=== PATIENT | male | born 1955 | race Caucasian/White ===

== ENCOUNTER 2019-02-10 13:04 | Outpatient (CLI) | payer OTHER | END 2019-02-10 13:05 | disposition home or self-care (01) | LOC: DTY/OP 13:04 | PROVIDERS: ATTEND Family Medicine | DX: E66.9 Obesity, unspecified (principal) | CPT/HCPCS: 97802 ==

== ENCOUNTER 2020-04-01 10:46 | Inpatient (IN) | payer BC ==
[2020-04-01] MEDS ORDERED: Dexamethasone 10 MG/ML VIAL ONE (11:06)
[2020-04-01] MEDS ORDERED: Azithromycin 500 MG VIAL ONE (11:06)
[2020-04-01] MEDS ORDERED: Magnesium 2 GM/50 ML BAG (IN WATER) ONE (11:06)
[2020-04-01] MEDS ORDERED: cefTRIAXone\\ROCEPHIN 2 GM VIAL ONE (11:06)
--- NOTE | 2020-04-01 11:29 | RAD ---
Exam: XR Knee Lt 4 View STANDARD HISTORY: Trauma to left knee. COMPARISON: None FINDINGS: A left total knee prosthesis is noted in place. No hardware complication is seen. The lateral view is obtained in flexion. No fracture, dislocation, or other osseous abnormality is seen. Vascular calcifications are seen posterior to the left knee. IMPRESSION: Left total knee prosthesis without evidence of an acute osseous abnormality.
[2020-04-01 11:31] LABS: INR-International Normal Ratio 1.5; Prothrombin Time 18.3 sec (12.0-14.7)
[2020-04-01 11:33] LABS: D-Dimer Test 0.67 *mcg/mL (0.27-0.43)
--- NOTE | 2020-04-01 11:33 | RAD ---
XR Chest 1 View Portable History: Chest pain, weakness and shortness of breath Comparison: Radiograph February 23, 2020 Findings: Abnormal peripheral opacities throughout the lungs. Heart size is enlarged. No pneumothorax . Cardiac device appears similar. Impression: Commonly reported imaging findings of the COVID-19 pneumonia.
[2020-04-01 11:37] LABS: #Lymphocytes 0.5 thou/uL (1.20-3.40); #Monocytes 0.2 thou/uL (0.11-0.59); #Neutrophils 4.2 thou/uL (1.40-6.50); %Basophils 0.2 % (0.0-1.0); %Eosinophils 0.2 % (0.0-10.0); %Lymphocytes 10.2 % (21.0-51.0); %Monocytes 4.6 % (0.0-10.0); %Neutrophils 84.8 % (42.0-75.0); Hemoglobin 15.2 g/dL (14.0-18.0); Mean Corpuscular HGB CONC 34.1 g/dL (32.0-36.0); Mean Corpuscular Hemoglobin 34.1 pg (27.0-31.0); Mean Corpuscular Volume 99.9 fL (78.0-98.0); Mean Platelet Volume 8.6 fL (7.4-10.4); Platelet Count 96 thou/uL (130-400); Platelet Morphology Comment Appears Decreased; RBC Distribution Width 12.5 % (11.5-14.5); Red Blood Cell (RBC) Count 4.45 mill/uL (4.70-6.10)
[2020-04-01 11:44] LABS: ALT (SGPT) 33 U/L (8-55); AST (SGOT) 76 U/L (5-34); Alkaline Phosphatase 35 U/L (40-110); Anion Gap 13 mmol/L (10-20); BUN (Urea Nitrogen) 30 mg/dL (8.4-25.7); Bilirubin, Total 0.7 mg/dL (0.2-1.2); CK (CPK) 1676 U/L (30-200); Calc. Creatinine Clearance 0 mL/min (70-130); Calcium 7.9 mg/dL (7.8-10.44); Carbon Dioxide 26 mmol/L (23-31); Chloride 101 mmol/L (98-107); Estimated GFR-MDRD 39; Globulin 2.7 g/dL (2.4-3.5); Glucose 110 mg/dL (80-115); Lipase 90 U/L (8-78); Potassium 4.4 mmol/L (3.5-5.1); Protein, Total 5.7 g/dL (5.8-8.1); Sodium 136 mmol/L (136-145)
[2020-04-01 12:03] LABS: CKMB 1.6 ng/mL (0-6.6)
--- NOTE | 2020-04-01 12:17 | PDOC.HHP ---
Hospitalist HPI - History of Present Illness Dyspnea History of Present Illness: This is a 64-year-old male patient with a history of Coronary artery disease, hypertension, atrial fibrillation on Eliquis, gout, MARIEL and COPD who was brought in by EMS on account of worsening respiratory symptoms, weakness and therefore secondary to Covid pneumonia. He was discharged on 02/25/2020 having been managed for atrial fibrillation. He was tested positive for COVID-19days on 03/21/2020 symptoms are getting worse. He noted worsening dyspnea, chills, fevers and weakness. He became so weak that he fell. He however did not hit his head. He fell on his knees. he monitors his oxygen at home and he notes range between 60s and 80s. He activated EMS who found him with oxygen in the 80s upon release of the supp lemental oxygen. Temperature at home on EMS arrival was 101.7. At presentation BP was 115/69, pulse 64, respiratory rate 20, temperature 99.4, saturation 98 on high flow oxygen. On arrival in the ED was placed on BiPAP with improvement in his oxygenation and dyspnea. His labs showed elevated troponin of 0.05, CK was checked elevated at thousand 676, lipase was mildly of little 90. Creatinine was 1.78 from a baseline of 1.31 on 03/21/2020, AST was slightly increased at 76, and platelet count was 96 from a baseline of 152 on 03/22/2020. D-dimer was elevated at 0.67, imaging showed chest x-ray with abnormal peripheral history of the lung consistent with Covid pneumonia. Chest x-ray was consistent with normal sinus rhythm with left axis deviation and low voltage QRS complexes. He also had x-ray of his knee given his fall which showed left total knee prosthesis without evidence of acute osseous abnormality. CT scan of his head was not done. He was given aspirin 3 to 4 mg, azithromycin 500 mg, magnesium sulfate, Decadron ceftriaxone and 1 L of normal saline. Hospitalist team was called to admit Hospitalist ROS - Review of Systems Constitutional: denies: fever, chills, weakness Respiratory: reports: cough, shortness of breath, hemoptysis, SOB with excertion Cardiovascular: denies: chest pain, palpitations, orthopnea, paroxysmal noc. dyspnea Gastrointestinal: denies: nausea, vomiting, abdominal pain, diarrhea Genitourinary: denies: dysuria, frequency, incontinence, hematuria Hospitalist History - Past Medical History Cardiac: reports: CAD Rheumatologic: reports: Gout Other Medical History: Obstructive sleep apnea, COPD, coronary disease, A. fib, bradycardia status post pacemaker - Past Surgical History Past Surgical History: reports: Total Knee Replacement, Other (stents. Pacer placement. Shoulder repair) Other Surgical History: Pacemaker placement, left knee replacement - Family History Other Family History: Mother has diabetes. - Social History Alcohol: reports: None Drugs: reports: none Living Situation: Alone - Exam General Appearance: awake alert ENT: normocephalic atraumatic, moist mucosa Heart: no murmur, no gallops, no rubs, normal peripheral pulses Respiratory - other findings: Bilateral coarse breath sounds Extremities: no cyanosis, no clubbing, no edema Neurological: cranial nerve grossly intact, no weakness Psychiatric: A&O x 3 Hospitalist Results - Labs Result Diagrams: 04/01/20 11:08 04/01/20 11:08 Lab results: WBC 5.0 thou/uL (4.8-10.8) 04/01/20 11:08 Hgb 15.2 g/dL (14.0-18.0) 04/01/20 11:08 Hct 44.4 % (42.0-52.0) 04/01/20 11:08 MCV 99.9 fL (78.0-98.0) H 04/01/20 11:08 Plt Count 96 thou/uL (130-400) L 04/01/20 11:08 Neutrophils % 84.8 % (42.0-75.0) H 04/01/20 11:08 Sodium 136 mmol/L (136-145) 04/01/20 11:08 Potassium 4.4 mmol/L (3.5-5.1) 04/01/20 11:08 Chloride 101 mmol/L (98-107) 04/01/20 11:08 Carbon Dioxide 26 mmol/L (23-31) 04/01/20 11:08 BUN 30 mg/dL (8.4-25.7) H 04/01/20 11:08 Creatinine 1.78 mg/dL (0.7-1.3) H 04/01/20 11:08 Glucose 110 mg/dL (80-115) 04/01/20 11:08 Calcium 7.9 mg/dL (7.8-10.44) 04/01/20 11:08 Total Bilirubin 0.7 mg/dL (0.2-1.2) 04/01/20 11:08 AST 76 U/L (5-34) H 04/01/20 11:08 ALT 33 U/L (8-55) 04/01/20 11:08 Alkaline Phosphatase 35 U/L (40-110) L 04/01/20 11:08 Creatine Kinase 1676 U/L (30-200) H 04/01/20 11:08 CK-MB (CK-2) 1.6 ng/mL (0-6.6) 04/01/20 11:08 Troponin I 0.050 ng/mL (< 0.028) H 04/01/20 11:08 B-Natriuretic Peptide 36.6 pg/mL (0-100) 04/01/20 11:08 Serum Total Protein 5.7 g/dL (5.8-8.1) L 04/01/20 11:08 Albumin 3.0 g/dL (3.4-4.8) L 04/01/20 11:08 Lipase 90 U/L (8-78) H 04/01/20 11:08 Hospitalist H&P A/P - Plan Plan: 64-year-old male patient history of A. fib, MARIEL, COPD. Admitted on account of acute hypoxic respiratory failure secondary to Covid pneumonia. Acute hypoxic respiratory failure Secondary to Covid pneumonia also underlying COPD and MARIEL Continue on high flow nasal oxygen Breathing treatments adjustment Pulmonology consult if worsens Covid pneumonia Outside remdesivir windowwe will continue monitoring We will continue on Decadron Continue to coagulation for apixaban Consult ID for further input AGA Creatinine 1.31-1.7 today Likely prerenal We will start gentle hydration and monitor Fall Secondary to weakness did not pass out or have any palpitations No head CT on account of not hitting his head He fell on his knees Fall precautions however Telemetry monitoring Close monitoring. Rhabdomyolysis Hydration Monitor CK A. fib Continue apixaban Start amiodarone once those very Telemetry monitoring. Anticoagulant therapy Monitor for bleeding given thrombocytopenia Thrombocytopenia Unclear etiologypossibly Covid/sepsis Keep monitoring Elevated troponin Received troponinwe will monitor Also on anticoagulation. History of gout Start allopurinol until verified Hypertension Hold amlodipine and carvedilolBP soft at the moment. Monitor blood pressure MARIEL CPAP at night [place] prophylaxistherapeutic on apixaban CODE STATUSfull code
[2020-04-01] MEDS ORDERED: Rocuronium Bromide 10 MG/ML (10ML VIAL) ONE (12:21)
[2020-04-01] MEDS ORDERED: Aspirin Chewable 81 MG TAB ONE (12:21)
[2020-04-01] MEDS ORDERED: Succinylcholine Chloride 20 MG/ML 10 ml SYRINGE FS ONE (12:21)
[2020-04-01] MEDS ORDERED: Electrolyte Replacement Protoc 1 EACH EACH FS SCH (13:15)
[2020-04-01] MEDS ORDERED: Electrolyte Replacement Protocol FS PRN (13:15)
[2020-04-01] MEDS ORDERED: PROVENTIL INHALER 6.7 G (200 INHALATIONS) INH PRN (15:15)
--- NOTE | 2020-04-01 15:20 | CT ---
CT HEAD WITHOUT IV CONTRAST COMPARISON: 07/19/2018 HISTORY: Covid positive. Patient fell. Anticoagulated. 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 This results in significant artifact in this region. There is no evidence of an acute infarction, hemorrhage, mass effect, or midline shift. The ventricular system is normal in size, shape, and position. Skull base has a normal CT appearance. Mucosal thickening seen in bilateral ethmoidal air cells and each maxillary antrum. Mastoid air cells are clear. Osseous structures appear intact. No other interval change. IMPRESSION: 1. No acute intracranial abnormality demonstrated. 2. Sinus disease.
[2020-04-01 15:50] LABS: Troponin I 0.061 ng/mL (< 0.028)
[2020-04-01] MEDS: PROVENTIL INHALER 6.7 G (200 INHALATIONS) INH SCH (17:38)
[2020-04-01 18:23] LABS: Troponin I 0.052 ng/mL (< 0.028)
[2020-04-01] MEDS: Apixaban 5 MG TAB PO SCH (19:49)
[2020-04-01] MEDS: Acetaminophen 325 MG TAB PO PRN (19:49)
[2020-04-02] MEDS: PROVENTIL INHALER 6.7 G (200 INHALATIONS) INH SCH ×7 (00:03→22:38)
[2020-04-02 05:28] LABS: #Lymphocytes 0.4 thou/uL (1.20-3.40); #Monocytes 0.3 thou/uL (0.11-0.59); #Neutrophils 5.9 thou/uL (1.40-6.50); %Basophils 0.3 % (0.0-1.0); %Eosinophils 0.2 % (0.0-10.0); %Lymphocytes 6.4 % (21.0-51.0); %Monocytes 4.2 % (0.0-10.0); %Neutrophils 88.9 % (42.0-75.0); Hemoglobin 15.4 g/dL (14.0-18.0); Mean Corpuscular Hemoglobin 33.6 pg (27.0-31.0); Mean Platelet Volume 8.3 fL (7.4-10.4); Platelet Count 110 thou/uL (130-400); RBC Distribution Width 12.5 % (11.5-14.5); Red Blood Cell (RBC) Count 4.59 mill/uL (4.70-6.10); White Blood Cell (WBC) Count 6.7 thou/uL (4.8-10.8)
[2020-04-02 05:45] LABS: Anion Gap 13 mmol/L (10-20); BUN (Urea Nitrogen) 28 mg/dL (8.4-25.7); CK (CPK) 2515 U/L (30-200); Calc. Creatinine Clearance 112 mL/min (70-130); Carbon Dioxide 26 mmol/L (23-31); Chloride 104 mmol/L (98-107); Estimated GFR-MDRD 49; Glucose 136 mg/dL (80-115); Potassium 4.3 mmol/L (3.5-5.1); Sodium 139 mmol/L (136-145)
[2020-04-02] MEDS: Amiodarone 200 MG TAB PO SCH ×2 (08:07→21:05)
[2020-04-02] MEDS: Amlodipine 5 MG TAB PO SCH (08:08)
[2020-04-02] MEDS: Allopurinol 300 MG TAB PO SCH (08:09)
[2020-04-02] MEDS: Carvedilol 6.25 MG TAB PO SCH ×2 (08:09→16:14)
[2020-04-02] MEDS: Apixaban 5 MG TAB PO SCH ×2 (08:09→21:05)
[2020-04-02] MEDS: Acetaminophen 325 MG TAB PO PRN ×3 (08:11→21:05)
[2020-04-02] MEDS ORDERED: Dexamethasone 10 MG/ML VIAL SLOW IVP SCH (09:00)
--- NOTE | 2020-04-02 17:11 | PDOC.HOSPP ---
- Subjective Encounter Date: 04/02/20 Encounter Time: 17:10 Subjective: Mr. Matthews was seen today in follow-up of COVID pneumonia. He notes feeling extremely fatigued. He is also dyspneic, and coughing. - Objective Vital Signs & Weight: Vital Signs (12 hours) Temp Pulse Resp BP BP BP Pulse Ox 04/02/20 16:26 99.6 F 63 20 139/75 93 L 04/02/20 10:47 98.9 F 73 20 131/75 96 04/02/20 08:09 144/73 H 04/02/20 08:08 67 144/73 H 04/02/20 08:01 99.3 F 67 20 144/73 H 99 04/02/20 07:17 99 Weight Weight 338 lb I&O: 04/01/20 04/02/20 04/03/20 06:59 06:59 06:59 Intake Total 990 Output Total 240 Balance 750 Result Diagrams: 04/02/20 05:12 04/02/20 05:12 Hospitalist ROS - Medication Medications: Active Medications Generic Name Dose Route Start Last Admin Trade Name Freq PRN Reason Stop Dose Admin Acetaminophen 650 mg 04/01/20 12:51 04/02/20 16:26 Acetaminophen 325 Mg Tab PO 650 mg Q4H PRN Administration Headache/Fever/Mild Pain (1-3) Albuterol Sulfate 2 puff 04/01/20 18:30 04/02/20 14:30 Proventil Inhaler 6.7 G (200 Inhalations) INH 2 puff [id number] EMANI Administration Allopurinol 300 mg 04/02/20 09:00 04/02/20 08:09 Allopurinol 300 Mg Tab PO 300 mg DAILY EMANI Administration Amiodarone HCl 400 mg 04/02/20 09:00 04/02/20 08:07 Amiodarone 200 Mg Tab PO 400 mg BID EMANI Administration Amlodipine Besylate 2.5 mg 04/02/20 09:00 04/02/20 08:08 Amlodipine 5 Mg Tab PO 2.5 mg DAILY EMANI Administration Apixaban 5 mg 04/01/20 21:00 04/02/20 08:09 Apixaban 5 Mg Tab PO 5 mg BID EMANI Administration Carvedilol 6.25 mg 04/02/20 08:00 04/02/20 16:14 Carvedilol 6.25 Mg Tab PO 6.25 mg BID-WM EMANI Administration Dexamethasone 10 mg 04/02/20 09:00 04/02/20 09:09 Dexamethasone 10 Mg/Ml Vial SLOW IVP 10 mg DAILY EMANI Administration - Exam Eye: PERRL, anicteric sclera Heart: RRR, no murmur, no gallops, no rubs, normal peripheral pulses Respiratory: rales (+ rales at both bases, and decreased breath sounds) Gastrointestinal: soft, non-tender, non-distended, normal bowel sounds, no palpable masses, no hepatomegaly Extremities: no cyanosis (palpable pulses bilaterally), no edema Hosp A/P (1) Acute respiratory failure with hypoxemia Code(s): J96.01 - ACUTE RESPIRATORY FAILURE WITH HYPOXIA Status: Acute (2) Pneumonia due to COVID-19 virus Code(s): U07.1 - COVID-19; J12.89 - OTHER VIRAL PNEUMONIA Status: Acute (3) Atrial fibrillation Code(s): I48.91 - UNSPECIFIED ATRIAL FIBRILLATION Status: Acute Qualifiers: Atrial fibrillation type: paroxysmal Qualified Code(s): I48.0 - Paroxysmal atrial fibrillation (4) CKD (chronic kidney disease) stage 3, GFR 30-59 ml/min Code(s): N18.3 - CHRONIC KIDNEY DISEASE, STAGE 3 (MODERATE) * DO NOT USE * Status: Chronic (5) Coronary artery disease Code(s): I25.10 - ATHSCL HEART DISEASE OF [place] CORONARY ARTERY W/O ANG PCTRS Status: Chronic (6) Hypertension Code(s): I10 - ESSENTIAL (PRIMARY) HYPERTENSION Status: Chronic Qualifiers: Hypertension type: essential hypertension Qualified Code(s): I10 - Essential (primary) hypertension (7) Obesity Code(s): E66.9 - OBESITY, UNSPECIFIED Status: Chronic Qualifiers: Obesity classification: adult class 3 (BMI >= 40) - Plan * Acute respiratory failure with hypoxemia due to COVID pneumonia- continue Dexamethasone IV * Continue Duonebs as needed * Continue high flow oxygen, and will monitor inflammatroy markers * HTN- Blood pressure is stable * AFIB- his heart rate is stable, and continue Eliquis * ID consult- to see if he would benefit from convalescent plasma
[2020-04-02] MEDS ORDERED: Mometasone 100 MCG/PUFF (1 INHALER) INH SCH (18:30)
[2020-04-02] MEDS: Mometasone 100 MCG/PUFF (1 INHALER) INH SCH (21:25)
--- NOTE | 2020-04-03 01:33 | CON ---
DATE OF CONSULTATION: 04/02/2020 REASON: COVID pneumonia. HISTORY OF PRESENT ILLNESS: A 64-year-old who has a history of obesity, gout, coronary artery disease and prior stenting, hypertension, and AFib, who was scheduled for an ablation around March 21, and he had a routine test for COVID, which turned back positive. He did not have symptoms at that time, but actually he did have it, has not realized it yet, but he was feeling some nonspecified malaise that quickly became worse with respiratory symptoms, worsening weakness, and a progressive desaturation, so he called EMS. EMS put him on a BiPAP mask after his O2 saturations were found to be in the 80% range. On arrival, his BP 115/69, pulse 64, respirations 20, temperature 99.4, O2 saturations were 98% on high-flow O2. He was admitted on the , which was the 11th day of illness, today is a 12th day of illness, and he is still about the same. He feels weakness, dyspnea. No headaches. No visual symptoms, sore throat, odynophagia, dysphagia. No chest pain. No abdominal pain. Voiding without difficulty. No diarrhea. MEDICAL HISTORY: Coronary artery disease, atrial fibrillation, hypertension, obesity, CKD stage 3, gout, prior stenting, cardioversion, sleep apnea. SURGICAL HISTORY: Includes also right hip replacement, left shoulder replacement, bilateral knee replacements. SOCIAL HISTORY: Used cocaine in the past, quit many years ago. Former smoker, quit more than 10 years ago. He is retired. FAMILY HISTORY: Renal failure. ALLERGIES: ASPIRIN, LOBSTER SHELLFISH. MEDICATIONS AT HOME: 1. Amiodarone. 2. Coreg. 3. Eliquis. 4. Allopurinol. 5. Inhalers. Currently, he is on: 1. Albuterol. 2. Allopurinol. 3. Amiodarone. 4. Decadron. 5. Mometasone. PHYSICAL EXAMINATION: VITAL SIGNS: T-max 99.3, blood pressure 130/70, heart rate 63, respiratory rate 20, O2 saturation 93% to 96%. He is on 60 L/minute high-flow nasal cannula O2. He is saturating actually now 97%. GENERAL: He is awake, oriented, pleasant. SKIN: There is peripheral IV access. He does not have a Aguero catheter. No lymphadenopathy. HEENT: Ocular movements conjugate. Oral cavity normal. NECK: Supple. LUNGS: Symmetric air entry. A few crackles here and there. No wheezing. HEART: S1, S2. Regular rate. No S3 or S4. ABDOMEN: Protuberant with a large panniculus, but no tenderness. No ascites. No organomegaly or bladder distention. EXTREMITIES: All the artificial joints appear normal. Good range of motion. No inflammatory changes. Pulses are 1+ in dorsalis pedis. No edema. Moves all extremities equally. NEUROLOGIC: Plantar responses are flexor. Cognitive function is perfectly fine. LABORATORY DATA: White cell count 6.7, hemoglobin 15.4, platelets 110 with 88% neutrophils. INR 1.5. D-dimer 0.67. CK is up to 2500. Troponin is at 0.052. IMAGING STUDIES: Basically, we have a chest x-ray which demonstrated bilateral infiltrates, cardiomegaly. ASSESSMENT: Ischemic cardiomyopathy, atrial fibrillation, hypertension, obesity, severe COVID pneumonia, on high-flow O2. He is on the 12th day of illness. He was not eligible for Remdesivir when he came in. We will continue on Decadron and Eliquis and we will monitor his inflammatory markers daily. High risk for poor outcome. Job ID: [id number] [facility]
[2020-04-03] MEDS: PROVENTIL INHALER 6.7 G (200 INHALATIONS) INH SCH ×6 (03:00→23:04)
[2020-04-03] MEDS: Apixaban 5 MG TAB PO SCH ×2 (09:04→21:20)
[2020-04-03] MEDS: Dexamethasone 4 mg/ml Vial SLOW IVP SCH (09:04)
[2020-04-03] MEDS: Allopurinol 300 MG TAB PO SCH (09:05)
[2020-04-03] MEDS: Amiodarone 200 MG TAB PO SCH ×2 (09:05→21:20)
[2020-04-03] MEDS: Amlodipine 5 MG TAB PO SCH (09:05)
[2020-04-03] MEDS: Carvedilol 6.25 MG TAB PO SCH ×2 (09:06→16:30)
[2020-04-03] MEDS: Mometasone 100 MCG/PUFF (1 INHALER) INH SCH ×2 (09:07→21:21)
--- NOTE | 2020-04-03 15:12 | PDOC.HOSPP ---
- Subjective Encounter Date: 04/03/20 Encounter Time: 15:10 Subjective: Mr. Matthews was seen today in follow-up of respiratory failure. He says he is feeling a little better today. No new complaints. - Objective Vital Signs & Weight: Vital Signs (12 hours) Temp Pulse Resp BP BP Pulse Ox 04/03/20 09:06 144/73 H 04/03/20 09:00 90 L 04/03/20 04:30 99.6 F 68 20 137/79 91 L Weight Weight 338 lb I&O: 04/02/20 04/03/20 04/04/20 06:59 06:59 06:59 Intake Total 990 800 900 Output Total 240 680 580 Balance 750 120 320 Result Diagrams: 04/02/20 05:12 04/02/20 05:12 Hospitalist ROS - Medication Medications: Active Medications Generic Name Dose Route Start Last Admin Trade Name Freq PRN Reason Stop Dose Admin Acetaminophen 650 mg 04/01/20 12:51 04/02/20 21:05 Acetaminophen 325 Mg Tab PO 650 mg Q4H PRN Administration Headache/Fever/Mild Pain (1-3) Albuterol Sulfate 2 puff 04/01/20 18:30 04/03/20 09:06 Proventil Inhaler 6.7 G (200 Inhalations) INH 2 puff [id number] EMANI Administration Allopurinol 300 mg 04/02/20 09:00 04/03/20 09:05 Allopurinol 300 Mg Tab PO 300 mg DAILY EMANI Administration Amiodarone HCl 400 mg 04/02/20 09:00 04/03/20 09:05 Amiodarone 200 Mg Tab PO 400 mg BID EMANI Administration Amlodipine Besylate 2.5 mg 04/02/20 09:00 04/03/20 09:05 Amlodipine 5 Mg Tab PO 2.5 mg DAILY EMANI Administration Apixaban 5 mg 04/01/20 21:00 04/03/20 09:04 Apixaban 5 Mg Tab PO 5 mg BID EMANI Administration Carvedilol 6.25 mg 04/02/20 08:00 04/03/20 09:06 Carvedilol 6.25 Mg Tab PO 6.25 mg BID-WM EMANI Administration Dexamethasone 6 mg 04/03/20 09:00 04/03/20 09:04 Dexamethasone 4 Mg/Ml Vial SLOW IVP 6 mg DAILY EMANI Administration Mometasone Furoate 100 mcg 04/02/20 21:00 04/03/20 09:07 Mometasone 100 Mcg/Puff (1 Inhaler) INH 100 mcg BID EMANI Administration - Exam Eye: PERRL, anicteric sclera Heart: RRR, no murmur, no gallops, no rubs, normal peripheral pulses Respiratory: no wheezes, no ronchi, rales (+ rales at both bases) Gastrointestinal: soft, non-tender, non-distended, normal bowel sounds, no palpable masses, no hepatomegaly, no splenomegaly Extremities: no cyanosis, no edema Skin: normal turgor, no rashes Hosp A/P (1) Acute respiratory failure with hypoxemia Code(s): J96.01 - ACUTE RESPIRATORY FAILURE WITH HYPOXIA Status: Acute (2) Pneumonia due to COVID-19 virus Code(s): U07.1 - COVID-19; J12.89 - OTHER VIRAL PNEUMONIA Status: Acute (3) Atrial fibrillation Code(s): I48.91 - UNSPECIFIED ATRIAL FIBRILLATION Status: Acute Qualifiers: Atrial fibrillation type: paroxysmal Qualified Code(s): I48.0 - Paroxysmal atrial fibrillation (4) CKD (chronic kidney disease) stage 3, GFR 30-59 ml/min Code(s): N18.3 - CHRONIC KIDNEY DISEASE, STAGE 3 (MODERATE) * DO NOT USE * Status: Chronic (5) Coronary artery disease Code(s): I25.10 - ATHSCL HEART DISEASE OF [place] CORONARY ARTERY W/O ANG PCTRS Status: Chronic (6) Hypertension Code(s): I10 - ESSENTIAL (PRIMARY) HYPERTENSION Status: Chronic Qualifiers: Hypertension type: essential hypertension Qualified Code(s): I10 - Essential (primary) hypertension (7) Obesity Code(s): E66.9 - OBESITY, UNSPECIFIED Status: Chronic Qualifiers: Obesity classification: adult class 3 (BMI >= 40) - Plan * Acute respiratory failure with hypoxemia due to COVID pneumonia- continue Dexamethasone IV * Continue Duonebs as needed * Continue high flow oxygen, and will monitor inflammatroy markers * Will optimize his nutritional status, and add Vitamin C and Zinc * Add Incentive Spirometry * AFIB- his heart rate is stable, and continue Eliquis * HTN- blood pressure is stable
[2020-04-03] MEDS ORDERED: Zinc Sulfate 220 MG CAP PO SCH (15:30)
[2020-04-03] MEDS ORDERED: Ascorbic Acid 500 mg Chewable Tablet PO SCH (15:30)
[2020-04-03] MEDS: Acetaminophen 325 MG TAB PO PRN (21:20)
[2020-04-04] MEDS: PROVENTIL INHALER 6.7 G (200 INHALATIONS) INH SCH ×6 (02:30→23:21)
[2020-04-04] MEDS: Dexamethasone 4 mg/ml Vial SLOW IVP SCH (08:30)
[2020-04-04] MEDS: Zinc Sulfate 220 MG CAP PO SCH (08:30)
[2020-04-04] MEDS: Amiodarone 200 MG TAB PO SCH ×2 (08:31→20:42)
[2020-04-04] MEDS: Ascorbic Acid 500 mg Chewable Tablet PO SCH (08:31)
[2020-04-04] MEDS: Amlodipine 5 MG TAB PO SCH (08:31)
[2020-04-04] MEDS: Allopurinol 300 MG TAB PO SCH (08:31)
[2020-04-04] MEDS: Apixaban 5 MG TAB PO SCH ×2 (08:32→20:42)
[2020-04-04] MEDS: Carvedilol 6.25 MG TAB PO SCH ×2 (08:33→17:51)
[2020-04-04] MEDS: Mometasone 100 MCG/PUFF (1 INHALER) INH SCH ×2 (08:33→20:42)
--- NOTE | 2020-04-04 12:34 | PQF ---
CLINICAL DOCUMENTATION CLARIFICATION FORM: Dear Dr. Jenkins Date: 04/04/20 1220 Please exercise your independent, professional judgment in responding to the clarification form. Clinical indicators are provided on the bottom of this form for your review. Please check appropriate box(es): AMI TYPE: [ ] Type 1 ME (NSTEMI) [ X ] Type 2 ME (T2MI) secondary to: [ ] hypertension [ ] arrhythmia [ ] Infection [ ] ischemic stroke [ ] renal failure [ X] other COVID peumonia with hypoxemia [ ] Other: [ ] Takotsubo syndrome [ ] Other diagnosis [ ] Unable to determine In addition, please specify: Present on Admission (POA): [ X] Yes [ ] No [ ] Unable to determine For continuity of documentation, please document condition throughout progress notes and discharge summary. Thank You. To be completed by CDI/Coding staff for physician review: CLINICAL INDICATORS - SIGNS / SYMPTOMS / LABS / RESULTS AND LOCATION IN EMR Troponin I 0.050, 0.061, 0.052 ( 04/01) ED report: final Dx Covid Pneumonia w hypoxia, Elevated CPK, Indeterminate Troponin RISKS / RESULTS AND LOCATION IN EMR Hypertension, CAD, S/P pacemaker placement, A-fib ( H&P/Affram)04/01 TREATMENTS / RESULTS AND LOCATION IN EMR Supplemental oxygen ( 04/01- present) Serial troponin (04/01) Thank you! CDS Signature: Edith Joseph RN Phone #: [phone] Date: 04/04/2020 This is a permanent part of the Medical Record [facility]
[2020-04-05] MEDS: PROVENTIL INHALER 6.7 G (200 INHALATIONS) INH SCH ×6 (02:35→22:45)
[2020-04-05] MEDS: Zinc Sulfate 220 MG CAP PO SCH (08:26)
[2020-04-05] MEDS: Amiodarone 200 MG TAB PO SCH ×2 (08:26→20:25)
[2020-04-05] MEDS: Apixaban 5 MG TAB PO SCH ×2 (08:28→20:25)
[2020-04-05] MEDS: Amlodipine 5 MG TAB PO SCH (08:28)
[2020-04-05] MEDS: Ascorbic Acid 500 mg Chewable Tablet PO SCH (08:28)
[2020-04-05] MEDS: Allopurinol 300 MG TAB PO SCH (08:28)
[2020-04-05] MEDS: Dexamethasone 4 mg/ml Vial SLOW IVP SCH (08:29)
[2020-04-05] MEDS: Carvedilol 6.25 MG TAB PO SCH ×2 (08:29→17:15)
[2020-04-05] MEDS: Mometasone 100 MCG/PUFF (1 INHALER) INH SCH ×2 (08:30→20:26)
[2020-04-05 08:53] LABS: Band 1 % (5-11); Hemoglobin 15.9 g/dL (14.0-18.0); Lymphocytes 9 % (21-51); MDiff Complete? YES; Mean Corpuscular HGB CONC 33.4 g/dL (32.0-36.0); Mean Corpuscular Hemoglobin 33.7 pg (27.0-31.0); Mean Platelet Volume 8.5 fL (7.4-10.4); Monocytes 4 % (0-10); Neutrophil 85 % (42-75); Platelet Count 165 thou/uL (130-400); Platelet Morphology Comment Appears Adequate; RBC Distribution Width 12.5 % (11.5-14.5); RBC Morphology Normal; Reactive Lymphocytes 1 % (0-10); Red Blood Cell (RBC) Count 4.72 mill/uL (4.70-6.10); White Blood Cell (WBC) Count 6.7 thou/uL (4.8-10.8)
[2020-04-05 10:33] LABS: Anion Gap 17 mmol/L (10-20); BUN (Urea Nitrogen) 27 mg/dL (8.4-25.7); Calc. Creatinine Clearance 162 mL/min (70-130); Calcium 8.2 mg/dL (7.8-10.44); Carbon Dioxide 22 mmol/L (23-31); Chloride 107 mmol/L (98-107); Estimated GFR-MDRD 75; Glucose 109 mg/dL (80-115); Potassium 4.4 mmol/L (3.5-5.1); Sodium 142 mmol/L (136-145)
--- NOTE | 2020-04-05 17:01 | PRG ---
DATE OF SERVICE: 04/05/2020 SUBJECTIVE: He feels like he is getting slowly better. He is having some diarrhea, but no respiratory symptoms other than [id number] dyspnea. Not much cough. No chest pain. No abdominal pain. Voiding without difficulty. OBJECTIVE: VITAL SIGNS: Blood pressure 140/70, heart rate 65, saturating at 93 high-flow nasal cannula O2 at 60. He has been at 60 since admission. His O2 saturations are a bit lower than what he had been on admission. LUNGS: Symmetric. Clear breath sounds. HEART: S1, S2. Regular rate. ABDOMEN: Soft, not distended or tender. EXTREMITIES: Moves extremities equally. LABORATORY DATA: Sodium 142, creatinine 1.01. Ferritin is down to 1900 from 2500 and CRP is down to 2.57, which are both significant improvement. ASSESSMENT AND DISCUSSION: Ischemic cardiomyopathy, atrial fibrillation, hypertension, obesity, severe COVID pneumonia, on high-flow O2. This is the 15th day of illness. Continues on Decadron, Eliquis. Inflammatory markers are getting better. Job ID: [id number]
--- NOTE | 2020-04-05 17:42 | PDOC.HOSPP ---
- Subjective Encounter Date: 04/05/20 Encounter Time: 17:40 Subjective: Mr. Matthews was seen today in follow-up of COVID pneumonia and respiratory failure. He says he feels a little better today than yesterday, and his oxygen saturation have improved some. - Objective Vital Signs & Weight: Vital Signs (12 hours) Pulse BP Pulse Ox 04/05/20 17:15 144/73 H 04/05/20 08:29 144/73 H 04/05/20 08:28 65 04/05/20 08:00 94 L Weight Weight 338 lb I&O: 04/04/20 04/05/20 04/06/20 06:59 06:59 06:59 Intake Total 1400 2000 Output Total 1230 1050 Balance 170 950 Result Diagrams: 04/05/20 08:14 04/05/20 08:14 Hospitalist ROS - Medication Medications: Active Medications Generic Name Dose Route Start Last Admin Trade Name Freq PRN Reason Stop Dose Admin Acetaminophen 650 mg 04/01/20 12:51 04/03/20 21:20 Acetaminophen 325 Mg Tab PO 650 mg Q4H PRN Administration Headache/Fever/Mild Pain (1-3) Albuterol Sulfate 2 puff 04/01/20 18:30 04/05/20 15:28 Proventil Inhaler 6.7 G (200 Inhalations) INH 2 puff [id number] EMANI Administration Allopurinol 300 mg 04/02/20 09:00 04/05/20 08:28 Allopurinol 300 Mg Tab PO 300 mg DAILY EMANI Administration Amiodarone HCl 400 mg 04/02/20 09:00 04/05/20 08:26 Amiodarone 200 Mg Tab PO 400 mg BID EMANI Administration Amlodipine Besylate 2.5 mg 04/02/20 09:00 04/05/20 08:28 Amlodipine 5 Mg Tab PO 2.5 mg DAILY EMANI Administration Apixaban 5 mg 04/01/20 21:00 04/05/20 08:28 Apixaban 5 Mg Tab PO 5 mg BID EMANI Administration Ascorbic Acid 1,000 mg 04/04/20 09:00 04/05/20 08:28 Ascorbic Acid 500 Mg Chewable Tablet PO 1,000 mg DAILY EMANI Administration Carvedilol 6.25 mg 04/02/20 08:00 04/05/20 17:15 Carvedilol 6.25 Mg Tab PO 6.25 mg BID-WM EMANI Administration Dexamethasone 6 mg 04/03/20 09:00 04/05/20 08:29 Dexamethasone 4 Mg/Ml Vial SLOW IVP 6 mg DAILY EMANI Administration Mometasone Furoate 100 mcg 04/02/20 21:00 04/05/20 08:30 Mometasone 100 Mcg/Puff (1 Inhaler) INH 100 mcg BID EMANI Administration Zinc Sulfate 220 mg 04/04/20 09:00 04/05/20 08:26 Zinc Sulfate 220 Mg Cap PO 220 mg DAILY EMANI Administration - Exam Eye: PERRL, anicteric sclera Heart: RRR, no murmur, no gallops, no rubs, normal peripheral pulses Respiratory: no ronchi, rales Gastrointestinal: soft, non-tender, non-distended, normal bowel sounds, no palpable masses, no hepatomegaly Extremities: no cyanosis, 1+ LE edema Hosp A/P (1) Acute respiratory failure with hypoxemia Code(s): J96.01 - ACUTE RESPIRATORY FAILURE WITH HYPOXIA Status: Acute (2) Pneumonia due to COVID-19 virus Code(s): U07.1 - COVID-19; J12.89 - OTHER VIRAL PNEUMONIA Status: Acute (3) Atrial fibrillation Code(s): I48.91 - UNSPECIFIED ATRIAL FIBRILLATION Status: Acute Qualifiers: Atrial fibrillation type: paroxysmal Qualified Code(s): I48.0 - Paroxysmal atrial fibrillation (4) CKD (chronic kidney disease) stage 3, GFR 30-59 ml/min Code(s): N18.3 - CHRONIC KIDNEY DISEASE, STAGE 3 (MODERATE) * DO NOT USE * Status: Chronic (5) Coronary artery disease Code(s): I25.10 - ATHSCL HEART DISEASE OF [place] CORONARY ARTERY W/O ANG PCTRS Status: Chronic (6) Hypertension Code(s): I10 - ESSENTIAL (PRIMARY) HYPERTENSION Status: Chronic Qualifiers: Hypertension type: essential hypertension Qualified Code(s): I10 - Essential (primary) hypertension (7) Obesity Code(s): E66.9 - OBESITY, UNSPECIFIED Status: Chronic Qualifiers: Obesity classification: adult class 3 (BMI >= 40) - Plan * Acute respiratory failure with hypoxemia due to COVID pneumonia- * He is slightly improved, but condition is still guarded * Continue Dexamethasone IV * Continue Duonebs as needed * Continue high flow oxygen, and will monitor inflammatroy markers * Continue Incentive Spirometry * AFIB- his heart rate is stable, and continue Eliquis * HTN- blood pressure is stable
[2020-04-06] MEDS: PROVENTIL INHALER 6.7 G (200 INHALATIONS) INH SCH ×6 (02:34→22:40)
[2020-04-06] MEDS: Amiodarone 200 MG TAB PO SCH ×2 (08:11→19:53)
[2020-04-06] MEDS: Ascorbic Acid 500 mg Chewable Tablet PO SCH (08:11)
[2020-04-06] MEDS: Apixaban 5 MG TAB PO SCH ×2 (08:11→19:53)
[2020-04-06] MEDS: Dexamethasone 4 mg/ml Vial SLOW IVP SCH (08:12)
[2020-04-06] MEDS: Allopurinol 300 MG TAB PO SCH (08:12)
[2020-04-06] MEDS: Zinc Sulfate 220 MG CAP PO SCH (08:12)
[2020-04-06] MEDS: Carvedilol 6.25 MG TAB PO SCH ×2 (08:12→16:04)
[2020-04-06] MEDS: Amlodipine 5 MG TAB PO SCH (08:12)
[2020-04-06] MEDS: Mometasone 100 MCG/PUFF (1 INHALER) INH SCH ×2 (08:13→19:53)
--- NOTE | 2020-04-06 14:51 | PDOC.HOSPP ---
- Subjective Encounter Date: 04/06/20 Encounter Time: 14:50 Subjective: Mr. Matthews was seen today in follow-up of COVID pneumonia. He says he is feeling a little better today. He walked a few steps in his room,on high flow, and his oxygen saturations did not drop. He denies chest pain or difficulty breathing. - Objective Vital Signs & Weight: Vital Signs (12 hours) Temp Pulse Resp BP BP Pulse Ox 04/06/20 11:37 156/87 H 04/06/20 08:12 61 144/73 H 04/06/20 08:05 98.2 F 61 20 175/79 H 92 L 04/06/20 08:00 92 L Weight Weight 338 lb I&O: 04/05/20 04/06/20 04/07/20 06:59 06:59 06:59 Intake Total 2000 900 Output Total 1050 750 Balance 950 150 Result Diagrams: 04/05/20 08:14 04/05/20 08:14 Hospitalist ROS - Medication Medications: Active Medications Generic Name Dose Route Start Last Admin Trade Name Freq PRN Reason Stop Dose Admin Acetaminophen 650 mg 04/01/20 12:51 04/03/20 21:20 Acetaminophen 325 Mg Tab PO 650 mg Q4H PRN Administration Headache/Fever/Mild Pain (1-3) Albuterol Sulfate 2 puff 04/01/20 18:30 04/06/20 05:46 Proventil Inhaler 6.7 G (200 Inhalations) INH 2 puff [id number] EMANI Administration Allopurinol 300 mg 04/02/20 09:00 04/06/20 08:12 Allopurinol 300 Mg Tab PO 300 mg DAILY EMANI Administration Amiodarone HCl 400 mg 04/02/20 09:00 04/06/20 08:11 Amiodarone 200 Mg Tab PO 400 mg BID EMANI Administration Amlodipine Besylate 2.5 mg 04/02/20 09:00 04/06/20 08:12 Amlodipine 5 Mg Tab PO 2.5 mg DAILY EMANI Administration Apixaban 5 mg 04/01/20 21:00 04/06/20 08:11 Apixaban 5 Mg Tab PO 5 mg BID EMANI Administration Ascorbic Acid 1,000 mg 04/04/20 09:00 04/06/20 08:11 Ascorbic Acid 500 Mg Chewable Tablet PO 1,000 mg DAILY EMANI Administration Carvedilol 6.25 mg 04/02/20 08:00 04/06/20 08:12 Carvedilol 6.25 Mg Tab PO 6.25 mg BID-WM EMNAI Administration Dexamethasone 6 mg 04/03/20 09:00 04/06/20 08:12 Dexamethasone 4 Mg/Ml Vial SLOW IVP 6 mg DAILY EMANI Administration Mometasone Furoate 100 mcg 04/02/20 21:00 04/06/20 08:13 Mometasone 100 Mcg/Puff (1 Inhaler) INH 100 mcg BID EMANI Administration Zinc Sulfate 220 mg 04/04/20 09:00 04/06/20 08:12 Zinc Sulfate 220 Mg Cap PO 220 mg DAILY EMANI Administration - Exam Eye: PERRL, anicteric sclera Heart: RRR, no murmur, no gallops, no rubs, normal peripheral pulses Respiratory: no ronchi, rales (+ rales at both bases) Gastrointestinal: soft, non-tender, non-distended, normal bowel sounds, no palpable masses, no hepatomegaly Extremities: no cyanosis, no edema Skin: normal turgor, no lesions, no rashes Hosp A/P (1) Acute respiratory failure with hypoxemia Code(s): J96.01 - ACUTE RESPIRATORY FAILURE WITH HYPOXIA Status: Acute (2) Pneumonia due to COVID-19 virus Code(s): U07.1 - COVID-19; J12.89 - OTHER VIRAL PNEUMONIA Status: Acute (3) Atrial fibrillation Code(s): I48.91 - UNSPECIFIED ATRIAL FIBRILLATION Status: Acute Qualifiers: Atrial fibrillation type: paroxysmal Qualified Code(s): I48.0 - Paroxysmal atrial fibrillation (4) CKD (chronic kidney disease) stage 3, GFR 30-59 ml/min Code(s): N18.3 - CHRONIC KIDNEY DISEASE, STAGE 3 (MODERATE) * DO NOT USE * Status: Chronic (5) Coronary artery disease Code(s): I25.10 - ATHSCL HEART DISEASE OF [place] CORONARY ARTERY W/O ANG PCTRS Status: Chronic (6) Hypertension Code(s): I10 - ESSENTIAL (PRIMARY) HYPERTENSION Status: Chronic Qualifiers: Hypertension type: essential hypertension Qualified Code(s): I10 - Essential (primary) hypertension (7) Obesity Code(s): E66.9 - OBESITY, UNSPECIFIED Status: Chronic Qualifiers: Obesity classification: adult class 3 (BMI >= 40) - Plan * Acute respiratory failure with hypoxemia due to COVID pneumonia- * He is slightly improved, * Continue Dexamethasone IV * Continue Duonebs as needed * His Inflammatory markers have declined some * Continue Incentive Spirometry * AFIB- his heart rate is stable, and continue Eliquis * HTN- blood pressure is a bit elevated- will increase the dose of Amlodipine
[2020-04-06] MEDS ORDERED: Amlodipine 5 MG TAB PO SCH (15:00)
[2020-04-07] MEDS: PROVENTIL INHALER 6.7 G (200 INHALATIONS) INH SCH ×6 (02:35→22:50)
[2020-04-07] MEDS: Carvedilol 6.25 MG TAB PO SCH ×2 (08:50→16:50)
[2020-04-07] MEDS: Amiodarone 200 MG TAB PO SCH ×2 (08:50→19:54)
[2020-04-07] MEDS: Allopurinol 300 MG TAB PO SCH (08:50)
[2020-04-07] MEDS: Amlodipine 5 MG TAB PO SCH (08:51)
[2020-04-07] MEDS: Dexamethasone 4 mg/ml Vial SLOW IVP SCH (08:51)
[2020-04-07] MEDS: Mometasone 100 MCG/PUFF (1 INHALER) INH SCH ×2 (08:51→19:55)
[2020-04-07] MEDS: Zinc Sulfate 220 MG CAP PO SCH (08:51)
[2020-04-07] MEDS: Apixaban 5 MG TAB PO SCH ×2 (08:51→19:54)
[2020-04-07] MEDS: Ascorbic Acid 500 mg Chewable Tablet PO SCH (08:51)
--- NOTE | 2020-04-07 15:10 | PDOC.HOSPP ---
- Subjective Encounter Date: 04/07/20 Encounter Time: 09:45 Subjective: feels better is trying to ambulate around his bed with high flow O2 is using spirometer as well no new complaints he cant lay prone but can sleep to lat sides - Objective Vital Signs & Weight: Vital Signs (12 hours) Temp Pulse Resp BP BP Pulse Ox 04/07/20 11:48 98.3 F 61 18 177/95 H 96 04/07/20 08:55 95 04/07/20 08:51 63 04/07/20 08:50 144/73 H Weight Weight 338 lb I&O: 04/06/20 04/07/20 04/08/20 06:59 06:59 05:59 Intake Total 900 1450 240 Output Total 750 1250 Balance 150 200 240 Result Diagrams: 04/05/20 08:14 04/05/20 08:14 Hospitalist ROS - Medication Medications: Active Medications Generic Name Dose Route Start Last Admin Trade Name Freq PRN Reason Stop Dose Admin Acetaminophen 650 mg 04/01/20 12:51 04/03/20 21:20 Acetaminophen 325 Mg Tab PO 650 mg Q4H PRN Administration Headache/Fever/Mild Pain (1-3) Albuterol Sulfate 2 puff 04/01/20 18:30 04/07/20 10:35 Proventil Inhaler 6.7 G (200 Inhalations) INH 2 puff [id number] EMANI Administration Allopurinol 300 mg 04/02/20 09:00 04/07/20 08:50 Allopurinol 300 Mg Tab PO 300 mg DAILY EMANI Administration Amiodarone HCl 400 mg 04/02/20 09:00 04/07/20 08:50 Amiodarone 200 Mg Tab PO 400 mg BID EMANI Administration Amlodipine Besylate 5 mg 04/07/20 09:00 04/07/20 08:51 Amlodipine 5 Mg Tab PO 5 mg DAILY EMANI Administration Apixaban 5 mg 04/01/20 21:00 04/07/20 08:51 Apixaban 5 Mg Tab PO 5 mg BID EMANI Administration Ascorbic Acid 1,000 mg 04/04/20 09:00 04/07/20 08:51 Ascorbic Acid 500 Mg Chewable Tablet PO 1,000 mg DAILY EMANI Administration Carvedilol 6.25 mg 04/02/20 08:00 04/07/20 08:50 Carvedilol 6.25 Mg Tab PO 6.25 mg BID-WM EMANI Administration Dexamethasone 6 mg 04/03/20 09:00 04/07/20 08:51 Dexamethasone 4 Mg/Ml Vial SLOW IVP 6 mg DAILY EMANI Administration Mometasone Furoate 100 mcg 04/02/20 21:00 04/07/20 08:51 Mometasone 100 Mcg/Puff (1 Inhaler) INH 100 mcg BID EMANI Administration Zinc Sulfate 220 mg 04/04/20 09:00 04/07/20 08:51 Zinc Sulfate 220 Mg Cap PO 220 mg DAILY EMANI Administration - Exam General Appearance: awake alert, ill appearing Eye: PERRL, anicteric sclera ENT: no oropharyngeal lesions, moist mucosa Neck: symmetric, no JVD Heart: RRR, no murmur Respiratory: no wheezes, rales, rhonchi Gastrointestinal: soft, non-tender, non-distended, normal bowel sounds Extremities: no cyanosis, no edema Neurological: cranial nerve grossly intact, no focal deficits Psychiatric: normal affect, A&O x 3 Hosp A/P (1) Acute respiratory failure with hypoxemia Code(s): J96.01 - ACUTE RESPIRATORY FAILURE WITH HYPOXIA Status: Acute (2) Pneumonia due to COVID-19 virus Code(s): U07.1 - COVID-19; J12.89 - OTHER VIRAL PNEUMONIA Status: Acute (3) Atrial fibrillation Code(s): I48.91 - UNSPECIFIED ATRIAL FIBRILLATION Status: Chronic Qualifiers: Atrial fibrillation type: paroxysmal Qualified Code(s): I48.0 - Paroxysmal atrial fibrillation (4) CKD (chronic kidney disease) stage 3, GFR 30-59 ml/min Code(s): N18.3 - CHRONIC KIDNEY DISEASE, STAGE 3 (MODERATE) * DO NOT USE * Status: Chronic (5) Coronary artery disease Code(s): I25.10 - ATHSCL HEART DISEASE OF [place] CORONARY ARTERY W/O ANG PCTRS Status: Chronic Qualifiers: Coronary Disease-Associated Artery/Lesion type: [place] artery [place] vs. transplanted heart: [place] heart Associated angina: without angina Qualified Code(s): I25.10 - Atherosclerotic heart disease of [place] coronary artery without angina pectoris (6) Gout Code(s): M10.9 - GOUT, UNSPECIFIED Status: Chronic Qualifiers: Gout site: unspecified site (7) Hypertension Code(s): I10 - ESSENTIAL (PRIMARY) HYPERTENSION Status: Chronic Qualifiers: Hypertension type: essential hypertension Qualified Code(s): I10 - Essential (primary) hypertension (8) Obesity Code(s): E66.9 - OBESITY, UNSPECIFIED Status: Chronic Qualifiers: Obesity classification: adult class 3 (BMI >= 40) Body mass index: BMI 45.0-49.9 - Plan is on dexamethasone, eliquis, norvasc, coreg, allopurinol and amiodarone high dose bid (might need lower dose will check with on thursday) hemostable still on high flow, staff to taper and see if he can come off high flow counselled to be active inside his room has morbid obesity with bmi of 45
[2020-04-08] MEDS: PROVENTIL INHALER 6.7 G (200 INHALATIONS) INH SCH ×6 (02:05→21:59)
[2020-04-08] MEDS: Acetaminophen 325 MG TAB PO PRN ×3 (05:31→22:01)
[2020-04-08 07:55] LABS: #Eosinphils 0.1 thou/uL (0.0-0.7); #Lymphocytes 0.5 thou/uL (1.20-3.40); #Monocytes 0.8 thou/uL (0.11-0.59); #Neutrophils 14.3 thou/uL (1.40-6.50); %Eosinophils 0.5 % (0.0-10.0); %Lymphocytes 3.4 % (21.0-51.0); %Monocytes 5.3 % (0.0-10.0); %Neutrophils 90.8 % (42.0-75.0); Hemoglobin 16.9 g/dL (14.0-18.0); Mean Corpuscular HGB CONC 34.1 g/dL (32.0-36.0); Mean Corpuscular Hemoglobin 33.6 pg (27.0-31.0); Mean Corpuscular Volume 98.8 fL (78.0-98.0); Mean Platelet Volume 7.9 fL (7.4-10.4); Platelet Count 190 thou/uL (130-400); RBC Distribution Width 12.3 % (11.5-14.5); Red Blood Cell (RBC) Count 5.02 mill/uL (4.70-6.10); White Blood Cell (WBC) Count 15.8 thou/uL (4.8-10.8)
[2020-04-08] MEDS: Ascorbic Acid 500 mg Chewable Tablet PO SCH (07:58)
[2020-04-08] MEDS: Carvedilol 6.25 MG TAB PO SCH ×2 (07:58→17:57)
[2020-04-08] MEDS: Apixaban 5 MG TAB PO SCH ×2 (07:58→21:43)
[2020-04-08] MEDS: Allopurinol 300 MG TAB PO SCH (07:58)
[2020-04-08] MEDS: Amlodipine 5 MG TAB PO SCH (07:58)
[2020-04-08] MEDS: Zinc Sulfate 220 MG CAP PO SCH (07:58)
[2020-04-08] MEDS: Amiodarone 200 MG TAB PO SCH ×2 (07:58→21:43)
[2020-04-08] MEDS: Mometasone 100 MCG/PUFF (1 INHALER) INH SCH ×2 (07:59→21:44)
[2020-04-08] MEDS: Dexamethasone 4 mg/ml Vial SLOW IVP SCH (07:59)
[2020-04-08 08:02] LABS: Anion Gap 16 mmol/L (10-20); BUN (Urea Nitrogen) 25 mg/dL (8.4-25.7); Calc. Creatinine Clearance 139 mL/min (70-130); Calcium 8.6 mg/dL (7.8-10.44); Carbon Dioxide 22 mmol/L (23-31); Chloride 102 mmol/L (98-107); Estimated GFR-MDRD 62; Glucose 87 mg/dL (80-115); Potassium 4.1 mmol/L (3.5-5.1); Sodium 136 mmol/L (136-145)
--- NOTE | 2020-04-08 10:46 | RAD ---
PORTABLE CHEST: 04/08/20 PROVIDED CLINICAL HISTORY: COVID pneumonia. COMPARISON: 04/01/2020 FINDINGS: The cardiac and mediastinal silhouette are unchanged in appearance. Evaluation is limited by patient body habitus. Left subclavian cardiac pacing device is again noted, in similar position. Metallic den sity overlying the right hilar region, presumably external to the patient. Bilateral air space and in terstitial opacities appear similar to prior. There is possible blunting of the left costophrenic ang le, stable. No evidence for pneumothorax. IMPRESSION: No significant interval change is apparent. POS: RADHA
--- NOTE | 2020-04-08 13:09 | PDOC.HOSPP ---
- Subjective Encounter Date: 04/08/20 Encounter Time: 10:45 Subjective: is sitting in chair with high flow says he is eating well is oriented well, can mobilize himself to chair and back to bed - Objective Vital Signs & Weight: Vital Signs (12 hours) Temp Pulse Resp BP BP BP Pulse Ox 04/08/20 12:04 94 L 04/08/20 08:15 98.7 F 74 18 123/80 100 04/08/20 07:59 100 04/08/20 07:58 80 123/80 04/08/20 05:31 101.9 F H 04/08/20 05:20 101.9 F H 77 20 150/89 H 94 L Weight Weight 338 lb I&O: 04/07/20 04/08/20 04/09/20 07:59 06:59 06:59 Intake Total 120 Output Total Balance 120 Result Diagrams: 04/08/20 07:25 04/08/20 07:25 Hospitalist ROS - Medication Medications: Active Medications Generic Name Dose Route Start Last Admin Trade Name Freq PRN Reason Stop Dose Admin Acetaminophen 650 mg 04/01/20 12:51 04/08/20 05:31 Acetaminophen 325 Mg Tab PO 650 mg Q4H PRN Administration Headache/Fever/Mild Pain (1-3) Albuterol Sulfate 2 puff 04/01/20 18:30 04/08/20 05:31 Proventil Inhaler 6.7 G (200 Inhalations) INH 2 puff [id number] EMANI Administration Allopurinol 300 mg 04/02/20 09:00 04/08/20 07:58 Allopurinol 300 Mg Tab PO 300 mg DAILY EMANI Administration Amiodarone HCl 400 mg 04/02/20 09:00 04/08/20 07:58 Amiodarone 200 Mg Tab PO 400 mg BID EMANI Administration Amlodipine Besylate 5 mg 04/07/20 09:00 04/08/20 07:58 Amlodipine 5 Mg Tab PO 5 mg DAILY EMANI Administration Apixaban 5 mg 04/01/20 21:00 04/08/20 07:58 Apixaban 5 Mg Tab PO 5 mg BID EMANI Administration Ascorbic Acid 1,000 mg 04/04/20 09:00 04/08/20 07:58 Ascorbic Acid 500 Mg Chewable Tablet PO 1,000 mg DAILY EMANI Administration Carvedilol 6.25 mg 04/02/20 08:00 04/08/20 07:58 Carvedilol 6.25 Mg Tab PO 6.25 mg BID-WM EMANI Administration Dexamethasone 6 mg 04/03/20 09:00 04/08/20 07:59 Dexamethasone 4 Mg/Ml Vial SLOW IVP 6 mg DAILY EMANI Administration Mometasone Furoate 100 mcg 04/02/20 21:00 04/08/20 07:59 Mometasone 100 Mcg/Puff (1 Inhaler) INH 100 mcg BID EMANI Administration Zinc Sulfate 220 mg 04/04/20 09:00 04/08/20 07:58 Zinc Sulfate 220 Mg Cap PO 220 mg DAILY EMANI Administration - Exam General Appearance: awake alert Eye: PERRL, anicteric sclera ENT: no oropharyngeal lesions, moist mucosa Neck: supple, no JVD Heart: RRR, no murmur Respiratory: no wheezes, rales, rhonchi Gastrointestinal: soft, non-tender, non-distended, normal bowel sounds Extremities: no cyanosis, no edema Neurological: cranial nerve grossly intact, no focal deficits Psychiatric: normal affect, A&O x 3 Hosp A/P (1) Acute respiratory failure with hypoxemia Code(s): J96.01 - ACUTE RESPIRATORY FAILURE WITH HYPOXIA Status: Acute (2) Pneumonia due to COVID-19 virus Code(s): U07.1 - COVID-19; J12.89 - OTHER VIRAL PNEUMONIA Status: Acute (3) Atrial fibrillation Code(s): I48.91 - UNSPECIFIED ATRIAL FIBRILLATION Status: Chronic Qualifiers: Atrial fibrillation type: paroxysmal Qualified Code(s): I48.0 - Paroxysmal atrial fibrillation (4) CKD (chronic kidney disease) stage 3, GFR 30-59 ml/min Code(s): N18.3 - CHRONIC KIDNEY DISEASE, STAGE 3 (MODERATE) * DO NOT USE * Status: Chronic (5) Coronary artery disease Code(s): I25.10 - ATHSCL HEART DISEASE OF [place] CORONARY ARTERY W/O ANG PCTRS Status: Chronic Qualifiers: Coronary Disease-Associated Artery/Lesion type: [place] artery [place] vs. transplanted heart: [place] heart Associated angina: without angina Qualified Code(s): I25.10 - Atherosclerotic heart disease of [place] coronary artery without angina pectoris (6) Gout Code(s): M10.9 - GOUT, UNSPECIFIED Status: Chronic Qualifiers: Gout site: unspecified site (7) Hypertension Code(s): I10 - ESSENTIAL (PRIMARY) HYPERTENSION Status: Chronic Qualifiers: Hypertension type: essential hypertension Qualified Code(s): I10 - Esse ntial (primary) hypertension (8) Obesity Code(s): E66.9 - OBESITY, UNSPECIFIED Status: Chronic Qualifiers: Obesity classification: adult class 3 (BMI >= 40) Body mass index: BMI 45.0-49.9 - Plan is on dexamethasone, eliquis, norvasc, coreg, allopurinol and amiodarone high dose bid (might need lower dose will check with on thursday) hemostable still on high flow with around 55% fio2, staff to taper and see if he can come off high flow counselled to be active inside his room has morbid obesity with bmi of 45 ltac eval with needing high flow O2 and likely prolonged recovery with b/l infiltrates.
--- NOTE | 2020-04-08 14:22 | PRG ---
DATE OF SERVICE: 04/08/2020 SUBJECTIVE: He is on high-flow, but not in distress right now. He is able to eat, unable to ambulate. Cough is less. OBJECTIVE: VITAL SIGNS: Temperature max 101.9 recently. He is on high-flow O2 down to 45 L from 60, his saturations are stable between 94 and 100. GENERAL: He is alert. Does not appear in distress. No inspiratory crackles perceived. LUNGS: No wheezing. HEART: Normal. ABDOMEN: Soft, not distended. NEURO: Nonfocal. LABORATORY DATA: White cell count is up to 15.8, probably Decadron effect. Sodium is 136 and creatinine 1.18. Ferritin is steadily going down, it started at 2500, now is 1100. CRP steadily going down from 61.24. He continues on Decadron, Eliquis, and mometasone. He had a repeat chest x-ray, which showed no changes with bilateral airspace and interstitial opacities similar to prior. ASSESSMENT AND DISCUSSION: Ischemic cardiomyopathy, atrial fibrillation, hypertension, obesity, and severe COVID pneumonia on high-flow O2. Today is the 18th day of illness, looks like things are turning around, then he should continue to get better going forward. Job ID: [id number]
[2020-04-08] MEDS ORDERED: Ibuprofen 200 MG TAB PO SCH (23:15)
[2020-04-08] MEDS: Melatonin 3 MG TAB PO PRN (23:20)
[2020-04-09] MEDS: PROVENTIL INHALER 6.7 G (200 INHALATIONS) INH SCH ×6 (03:22→23:23)
[2020-04-09] MEDS: Amiodarone 200 MG TAB PO SCH ×2 (08:41→19:48)
[2020-04-09] MEDS: Carvedilol 6.25 MG TAB PO SCH ×2 (08:41→17:12)
[2020-04-09] MEDS: Apixaban 5 MG TAB PO SCH ×2 (08:41→19:49)
[2020-04-09] MEDS: Allopurinol 300 MG TAB PO SCH (08:41)
[2020-04-09] MEDS: Ascorbic Acid 500 mg Chewable Tablet PO SCH (08:41)
[2020-04-09] MEDS: Dexamethasone 4 mg/ml Vial SLOW IVP SCH (08:42)
[2020-04-09] MEDS: Amlodipine 5 MG TAB PO SCH (08:42)
[2020-04-09] MEDS: Mometasone 100 MCG/PUFF (1 INHALER) INH SCH ×2 (08:43→19:49)
[2020-04-09] MEDS: Zinc Sulfate 220 MG CAP PO SCH (08:44)
[2020-04-09] MEDS ORDERED: Morphine 2 MG/ML VIAL SLOW IVP SCH ×2 (11:00→16:45)
[2020-04-09] MEDS: Cyclobenzaprine 10 MG TAB PO PRN ×2 (11:03→18:22)
[2020-04-09 11:54] LABS: Band 14 % (5-11); Hemoglobin 15.9 g/dL (14.0-18.0); Lymphocytes 4 % (21-51); MDiff Complete? YES; Mean Corpuscular HGB CONC 34.1 g/dL (32.0-36.0); Mean Corpuscular Hemoglobin 33.9 pg (27.0-31.0); Mean Corpuscular Volume 99.4 fL (78.0-98.0); Mean Platelet Volume 8.2 fL (7.4-10.4); Metamyelocyte 2 % (0-0); Monocytes 4 % (0-10); Neutrophil 76 % (42-75); Platelet Count 131 thou/uL (130-400); Platelet Morphology Comment Appears Adequate; RBC Distribution Width 12.5 % (11.5-14.5); RBC Morphology Normal; Vacuoles SLIGHT
[2020-04-09 11:55] LABS: Phosphorus 3.3 mg/dL (2.3-4.7)
[2020-04-09 11:58] LABS: ALT (SGPT) 54 U/L (8-55); AST (SGOT) 41 U/L (5-34); Alkaline Phosphatase 68 U/L (40-110); Anion Gap 15 mmol/L (10-20); BUN (Urea Nitrogen) 40 mg/dL (8.4-25.7); Bilirubin, Total 1.1 mg/dL (0.2-1.2); Calc. Creatinine Clearance 96 mL/min (70-130); Calcium 8.4 mg/dL (7.8-10.44); Carbon Dioxide 21 mmol/L (23-31); Chloride 100 mmol/L (98-107); Estimated GFR-MDRD 41; Globulin 3.4 g/dL (2.4-3.5); Glucose 169 mg/dL (80-115); Magnesium 1.6 mg/dL (1.6-2.6); Potassium 4.3 mmol/L (3.5-5.1); Protein, Total 6.4 g/dL (5.8-8.1); Sodium 132 mmol/L (136-145)
[2020-04-09] MEDS ORDERED: Sodium Chloride 0.9% 500 ML IV SCH (12:00)
[2020-04-09] MEDS ORDERED: Magnesium 2 GM/50 ML 2 GM in Premix Bag 1 BAG IVPB SCH (12:45)
[2020-04-09 15:42] LABS: Bilirubin Negative (Negative); Blood, Urine 2+ (Negative); Clarity Turbid (Clear); Glucose, Urine (Dipstick) Normal (Negative); Ketone, Urine Negative (Negative); Leukocyte Negative Leu/uL (Negative); Nitrite Negative (Negative); Protein, Urine (Dipstick) 20 mg/dL (Neg-Trace); RBC/HPF 21-50 HPF (0-3); Specific Gravity, Urine 1.025 (1.002-1.036); Squamous Epithelial 0-3 HPF (0-3); Urobilinogen 3 mg/dL (Less than 2); pH, Urine 5.5 (5.0-9.0)
[2020-04-09 15:55] LABS: Bacteria/HPF 1+ HPF (None Seen)
--- NOTE | 2020-04-09 22:06 | PDOC.HOSPP ---
- Subjective Encounter Date: 04/09/20 Encounter Time: 18:30 Subjective: Patient seen and examined for COVID 19 pneumonia. On high flow oxygen. Feels generally weak and fatigued. Dry cough. Short of breath on minimal exertion. - Objective Vital Signs & Weight: Weight Weight 338 lb I&O: 04/08/20 04/09/20 04/10/20 06:59 06:59 06:59 Intake Total 1280 1900 Output Total 500 1800 Balance 780 100 Result Diagrams: 04/09/20 11:14 04/09/20 11:14 Additional Labs: Abnormal Lab Results - Last 48 hrs 04/08/20 07:25: Carbon Dioxide 22 L 04/08/20 07:25: WBC 15.8 H, MCV 98.8 H, MCH 33.6 H, Neutrophils % 90.8 H, Lymphocytes % 3.4 L, Neutrophils # 14.3 H, Lymphocytes # 0.5 L, Monocytes # 0.8 H 04/09/20 11:14: Sodium 132 L, Carbon Dioxide 21 L, BUN 40 H, Creatinine 1.70 H, AST 41 H, Albumin 3.0 L, Albumin/Globulin Ratio 0.9 L 04/09/20 11:14: WBC 14.0 H, MCV 99.4 H, MCH 33.9 H, Neutrophils % (Manual) 76 H, Band Neuts % (Manual) 14 H, Lymphocytes % (Manual) 4 L, Metamyelocytes % (Man) 2 H 04/09/20 14:50: Urine Clarity Turbid A, Urine Blood 2+ A, Urine Urobilinogen 3 A, Urine RBC 21-50 A, Urine WBC 4-6 A, Urine Bacteria 1+ A Radiology Reviewed by me: Yes (Chest x-raypneumonia) Hospitalist ROS - Review of Systems Cardiovascular: denies: chest pain, palpitations, orthopnea, paroxysmal noc. dyspnea, edema, light headedness, other Gastrointestinal: denies: nausea, vomiting, abdominal pain, diarrhea, constipation, melena, hematochezia, other - Medication Medications: Active Medications Generic Name Dose Route Start Last Admin Trade Name Freq PRN Reason Stop Dose Admin Acetaminophen 650 mg 04/01/20 12:51 04/08/20 22:01 Acetaminophen 325 Mg Tab PO 650 mg Q4H PRN Administration Headache/Fever/Mild Pain (1-3) Albuterol Sulfate 2 puff 04/01/20 18:30 04/09/20 19:47 Proventil Inhaler 6.7 G (200 Inhalations) INH 2 puff [id number] EMANI Administration Allopurinol 300 mg 04/02/20 09:00 04/09/20 08:41 Allopurinol 300 Mg Tab PO 300 mg DAILY EMANI Administration Amiodarone HCl 400 mg 04/02/20 09:00 04/09/20 19:48 Amiodarone 200 Mg Tab PO 400 mg BID EMANI Administration Amlodipine Besylate 5 mg 04/07/20 09:00 04/09/20 08:42 Amlodipine 5 Mg Tab PO 5 mg DAILY EMANI Administration Apixaban 5 mg 04/01/20 21:00 04/09/20 19:49 Apixaban 5 Mg Tab PO 5 mg BID EMANI Administration Ascorbic Acid 1,000 mg 04/04/20 09:00 04/09/20 08:41 Ascorbic Acid 500 Mg Chewable Tablet PO 1,000 mg DAILY EMANI Administration Carvedilol 6.25 mg 04/02/20 08:00 04/09/20 17:12 Carvedilol 6.25 Mg Tab PO 6.25 mg BID-WM EMANI Administration Cyclobenzaprine HCl 10 mg 04/09/20 10:47 04/09/20 18:22 Cyclobenzaprine 10 Mg Tab PO 04/10/20 10:48 10 mg TID PRN Administration Muscle Spasm Dexamethasone 6 mg 04/03/20 09:00 04/09/20 08:42 Dexamethasone 4 Mg/Ml Vial SLOW IVP 6 mg DAILY EMANI Administration Melatonin 3 mg 04/08/20 22:47 04/08/20 23:20 Melatonin 3 Mg Tab PO 3 mg HS PRN Administration Insomnia Mometasone Furoate 100 mcg 04/02/20 21:00 04/09/20 19:49 Mometasone 100 Mcg/Puff (1 Inhaler) INH 100 mcg BID EMANI Administration Sodium Chloride 10 ml 04/09/20 21:00 04/09/20 19:50 Flush - Normal Saline 10 Ml Syringe IVF 10 ml Q12HR EMANI Administration Zinc Sulfate 220 mg 04/04/20 09:00 04/09/20 08:44 Zinc Sulfate 220 Mg Cap PO 220 mg DAILY EMANI Administration - Exam General Appearance: ill appearing Neck: supple, no JVD Heart: no gallops, no rubs Respiratory: rales, rhonchi Gastrointestinal: soft, non-tender, no guarding, no rigidity Extremities: no cyanosis Hosp A/P - Plan DVT proph w/lovenox, DVT proph w/SCDs Acute hypoxic respiratory failure due to COVID 19 pneumonia Acute kidney injury on CKD stage IImultifactorial Hyponatremia Obstructive sleep apnea Morbid obesity with a BMI 45.8 Coronary artery disease Gout Rhabdomyolysis on admission Plan: Gentle IV hydration due to acute kidney injury. Hold allopurinol. Continue amlodipine. Avoid NSAID's. Continue carvedilol. Continue dexamethasone. Recheck labs in a.m. Check CK in a.m. Check urinalysis
[2020-04-10] MEDS: Melatonin 3 MG TAB PO PRN (00:17)
[2020-04-10] MEDS: Cyclobenzaprine 10 MG TAB PO PRN ×2 (00:25→07:02)
[2020-04-10] MEDS ORDERED: Morphine 2 MG/ML VIAL SLOW IVP SCH ×2 (02:00→10:30)
[2020-04-10] MEDS: PROVENTIL INHALER 6.7 G (200 INHALATIONS) INH SCH ×5 (03:00→22:03)
[2020-04-10 05:49] LABS: Band 29 % (5-11); MDiff Complete? YES; Mean Corpuscular Hemoglobin 33.6 pg (27.0-31.0); Mean Platelet Volume 8.4 fL (7.4-10.4); Monocytes 17 % (0-10); Neutrophil 54 % (42-75); Platelet Count 131 thou/uL (130-400); Platelet Morphology Comment Appears Adequate; RBC Distribution Width 12.6 % (11.5-14.5); RBC Morphology Normal; Red Blood Cell (RBC) Count 4.76 mill/uL (4.70-6.10); White Blood Cell (WBC) Count 13.3 thou/uL (4.8-10.8)
[2020-04-10 05:53] LABS: ALT (SGPT) 49 U/L (8-55); AST (SGOT) 35 U/L (5-34); Alkaline Phosphatase 65 U/L (40-110); Anion Gap 17 mmol/L (10-20); BUN (Urea Nitrogen) 49 mg/dL (8.4-25.7); Bilirubin, Total 1.4 mg/dL (0.2-1.2); CK (CPK) 396 U/L (30-200); CRP (Inflammatory) 28.83 mg/dL (= or < 0.5); Calc. Creatinine Clearance 76 mL/min (70-130); Calcium 8.6 mg/dL (7.8-10.44); Carbon Dioxide 24 mmol/L (23-31); Chloride 97 mmol/L (98-107); Estimated GFR-MDRD 31; Globulin 3.7 g/dL (2.4-3.5); Glucose 117 mg/dL (80-115); Potassium 4.8 mmol/L (3.5-5.1); Protein, Total 6.7 g/dL (5.8-8.1); Sodium 133 mmol/L (136-145)
[2020-04-10] MEDS: Apixaban 2.5 MG TAB PO SCH ×2 (10:12→19:48)
[2020-04-10] MEDS: Amiodarone 200 MG TAB PO SCH ×2 (10:12→19:48)
[2020-04-10] MEDS: Ascorbic Acid 500 mg Chewable Tablet PO SCH (10:12)
[2020-04-10] MEDS: Dexamethasone 4 mg/ml Vial SLOW IVP SCH (10:13)
[2020-04-10] MEDS: Carvedilol 6.25 MG TAB PO SCH ×2 (10:13→17:43)
[2020-04-10] MEDS: Mometasone 100 MCG/PUFF (1 INHALER) INH SCH ×2 (10:13→22:03)
[2020-04-10] MEDS: Amlodipine 5 MG TAB PO SCH (10:13)
[2020-04-10] MEDS: Zinc Sulfate 220 MG CAP PO SCH (10:15)
[2020-04-10] MEDS: Sodium Chloride 0.9% 1,000 ML IV SCH ×2 (10:54→19:48)
[2020-04-10] MEDS ORDERED: Morphine 2 MG/ML VIAL SLOW IVP PRN ×2 (11:28→16:15)
[2020-04-10] MEDS ORDERED: traMADol HCl 50 MG TAB PO PRN (11:28)
[2020-04-10] MEDS: Lidocaine 5% Patch TD SCH (12:17)
[2020-04-10 15:21] LABS: Actual Bicarbonate (HCO3a) 21.1 mEq/L (22-28); Base Excess (BEa) -2.9 mEq/L (-2.0 to +3.0); Calcium, Ionized (arterial) 1.08 mmol/L (1.12-1.30); Carboxyhemoglobin (COHb) 0.9 gm% (0.0-3.0); Hemoglobin (Hb) 16.1 g/dL (14.0-18.0); Potassium - ABG Lab 5.11 mmol/L (3.70-5.30)
[2020-04-10 15:22] LABS: O2 Tension (PaO2), arterial 39.8 mmHg (> 80.0); Puncture Site RR
--- NOTE | 2020-04-10 15:22 | PDOC.HOSPP ---
- Subjective Encounter Date: 04/10/20 Encounter Time: 10:00 Subjective: c/o upper and lower back pain, is sitting in chair he got relief with morphine this am and wants another dose - Objective Vital Signs & Weight: Vital Signs (12 hours) Pulse Resp BP Pulse Ox 04/10/20 10:13 166/89 H 04/10/20 08:00 90 L 04/10/20 06:00 85 22 H 90 L Weight Weight 338 lb I&O: 04/09/20 04/10/20 04/11/20 06:59 06:59 06:59 Intake Total 1280 2630 Output Total 500 2450 Balance 780 180 Result Diagrams: 04/10/20 05:11 04/10/20 05:11 Hospitalist ROS - Medication Medications: Active Medications Generic Name Dose Route Start Last Admin Trade Name Freq PRN Reason Stop Dose Admin Acetaminophen 650 mg 04/01/20 12:51 04/08/20 22:01 Acetaminophen 325 Mg Tab PO 650 mg Q4H PRN Administration Headache/Fever/Mild Pain (1-3) Albuterol Sulfate 2 puff 04/01/20 18:30 04/10/20 10:14 Proventil Inhaler 6.7 G (200 Inhalations) INH 2 puff [id number] EMANI Administration Amiodarone HCl 400 mg 04/02/20 09:00 04/10/20 10:12 Amiodarone 200 Mg Tab PO 400 mg BID EMANI Administration Amlodipine Besylate 5 mg 04/07/20 09:00 04/10/20 10:13 Amlodipine 5 Mg Tab PO 5 mg DAILY EMANI Administration Apixaban 2.5 mg 04/10/20 09:00 04/10/20 10:12 Apixaban 2.5 Mg Tab PO 2.5 mg BID EMANI Administration Ascorbic Acid 1,000 mg 04/04/20 09:00 04/10/20 10:12 Ascorbic Acid 500 Mg Chewable Tablet PO 1,000 mg DAILY EMANI Administration Carvedilol 6.25 mg 04/02/20 08:00 04/10/20 10:13 Carvedilol 6.25 Mg Tab PO 6.25 mg BID-WM EMANI Administration Dexamethasone 6 mg 04/03/20 09:00 04/10/20 10:13 Dexamethasone 4 Mg/Ml Vial SLOW IVP 6 mg DAILY EMANI Administration Sodium Chloride 1,000 mls @ 100 mls/hr 04/10/20 07:45 04/10/20 10:54 Normal Saline 0.9% IV 04/11/20 03:44 1,000 mls .Q10H EMANI Administration Lidocaine 2 patch 04/10/20 12:00 04/10/20 12:17 Lidocaine 5% Patch TD 2 patch 1200 EMANI Administration Melatonin 3 mg 04/08/20 22:47 04/10/20 00:17 Melatonin 3 Mg Tab PO 3 mg HS PRN Administration Insomnia Mometasone Furoate 100 mcg 04/02/20 21:00 04/10/20 10:13 Mometasone 100 Mcg/Puff (1 Inhaler) INH 100 mcg BID EMANI Administration Sodium Chloride 10 ml 04/09/20 21:00 04/10/20 10:14 Flush - Normal Saline 10 Ml Syringe IVF 10 ml Q12HR EMANI Administration Zinc Sulfate 220 mg 04/04/20 09:00 04/10/20 10:15 Zinc Sulfate 220 Mg Cap PO 220 mg DAILY EMANI Administration - Exam General Appearance: awake alert Eye: PERRL, anicteric sclera ENT: no oropharyngeal lesions, moist mucosa Neck: supple, no JVD Heart: RRR, no murmur Respiratory: no wheezes, rales, rhonchi Gastrointestinal: soft, non-tender, non-distended, normal bowel sounds Extremities: no cyanosis, no edema Neurological: cranial nerve grossly intact, no focal deficits Psychiatric: A&O x 3 Hosp A/P (1) Acute respiratory failure with hypoxemia Code(s): J96.01 - ACUTE RESPIRATORY FAILURE WITH HYPOXIA Status: Acute (2) Pneumonia due to COVID-19 virus Code(s): U07.1 - COVID-19; J12.89 - OTHER VIRAL PNEUMONIA Status: Acute (3) Atrial fibrillation Code(s): I48.91 - UNSPECIFIED ATRIAL FIBRILLATION Status: Chronic Qualifiers: Atrial fibrillation type: paroxysmal Qualified Code(s): I48.0 - Paroxysmal atrial fibrillation (4) CKD (chronic kidney disease) stage 3, GFR 30-59 ml/min Code(s): N18.3 - CHRONIC KIDNEY DISEASE, STAGE 3 (MODERATE) * DO NOT USE * Status: Chronic (5) Coronary artery disease Code(s): I25.10 - ATHSCL HEART DISEASE OF [place] CORONARY ARTERY W/O ANG PCTRS Status: Chronic Qualifiers: Coronary Disease-Associated Artery/Lesion type: [place] artery [place] vs. transplanted heart: [place] heart Associated angina: without angina Qualified Code(s): I25.10 - Atherosclerotic heart disease of [place] coronary artery without angina pectoris (6) Gout Code(s): M10.9 - GOUT, UNSPECIFIED Status: Chronic Qualifiers: Gout site: unspecified site (7) Hypertension Code(s): I10 - ESSENTIAL (PRIMARY) HYPERTENSION Status: Chronic Qualifiers: Hypertension type: essential hypertension Qualified Code(s): I10 - Essential (primary) hypertension (8) Obesity Code(s): E66.9 - OBESITY, UNSPECIFIED Status: Chronic Qualifiers: Obesity classification: adult class 3 (BMI >= 40) Body mass index: BMI 45.0-49.9 - Plan spo2 dropped to around 60% around 2.30 pm when was visiting him, tx to imcu No further narcotics, continue lidocaine tts for back pain and ultram if the pain is very severe has severe covid 19 pna d/w and Rakesh is on dexamethasone, eliquis, norvasc, coreg, and amiodarone high dose bid, cefepime has been added from today is on high flow with around 70% fio2, counselled to be active inside his room has morbid obesity with bmi of 45 plan was for ltac, I had discussed this with him this am before he got worse with saturations
--- NOTE | 2020-04-10 15:40 | PRG ---
DATE OF SERVICE: 04/10/2020 SUBJECTIVE: Mr. Matthews today was sitting by the bed. He was obtunded and was having obvious coarse crackles in the upper airways. He was saturating at 67 with high-flow nasal cannula O2 at 50. OBJECTIVE: LUNGS: He had bilateral inspiratory crackles in the lung exam. CARDIAC: S1 and S2, tachycardic. He is tachypneic and quite obtunded. ABDOMEN: Soft. EXTREMITIES: He was able to move extremities. LABORATORY DATA: His white cell count is 13.3, hemoglobin 16, platelets 131, with 29% bands. His BP was 160/89. He was saturating at 67 with 50 L, and with 60, he went up to 76, and blood gas is pending at this time. His creatinine is up to 2.17 and his ferritin went up to 2200, and CRP is up to 28. He is currently on Eliquis, Decadron, morphine p.r.n., mometasone. The last chest x-ray is from April 08 and there is a left subclavian cardiac pacing device, bilateral airspace and interstitial opacities. ASSESSMENT AND DISCUSSION: Ischemic cardiomyopathy, atrial fibrillation, hypertension, obesity, and severe COVID pneumonia, on high-flow O2. The patient is markedly deteriorated today and it is not clear if this is just a COVID infection or complication, either pneumonia or congestive heart failure on top of the COVID. His renal function is deteriorating. It could be all worsening of the COVID infection, but certainly, he has turned for the worse since I last saw him. We will add broad-spectrum antimicrobial therapy. Check BNP. Get a chest x-ray, transfer him to IMCU or ICU, pending which one is available. Looks like they do not have beds in the ICU right now. Consult Pulmonary, Dr. Cameron was contacted and Dr. Leary was contacted about his progress as well. Job ID: [id number]
--- NOTE | 2020-04-10 15:40 | RAD ---
Portable frontal chest radiograph: 04/10/2020 COMPARISON: 04/08/2020 HISTORY: Covid pneumonia FINDINGS: This study is markedly limited technically secondary to body habitus, portable technique, a nd respiratory motion artifact. The heart appears enlarged. There is a left-sided transvenous pacing device. There is hazy increased interstitial and alveolar opacity in the perihilar regions, ri ght greater than left, bilateral lung bases, in the right suprahilar region. Opacity appears to have worsened within the lung bases when compared to the prior exam. IMPRESSION: Technically limited examination demonstrating extensive interstitial and alveolar opacity consistent with multi lobar infectious pneumonitis.
[2020-04-10] MEDS ORDERED: Ventilator Sedation Protocol 1 EACH FS SCH (16:00)
[2020-04-10] MEDS ORDERED: Fentanyl BOLUS 250 ML IVPB PRN (16:15)
[2020-04-10] MEDS ORDERED: DISCONTINUE PREVIOUS NARCOTIC PAIN MEDICATIONS AND BENZODIAZEPINES FS SCH (16:15)
[2020-04-10] MEDS ORDERED: Lorazepam 2 MG/ML VIAL SLOW IVP PRN (16:15)
[2020-04-10] MEDS ORDERED: Propofol BOLUS 1,000 MG/100 ML VIAL IV PRN (16:15)
[2020-04-10] MEDS ORDERED: fentaNYL Citrate/PF 2,000 MCG in Sodium Chloride 0.9% 60 ML IV SCH (16:15)
[2020-04-10] MEDS ORDERED: Propofol 1,000 MG/100 ML VIAL IV ONE (16:15)
[2020-04-10] MEDS ORDERED: Sodium Chloride 0.9% 15 ML NEB ONE (16:29)
[2020-04-10] MEDS ORDERED: Vecuronium 10 MG VIAL ONE (16:29)
[2020-04-10] MEDS ORDERED: Sterile Water 10 ML ONE (16:30)
[2020-04-10 16:54] LABS: Actual Bicarbonate (HCO3a) 21.5 mEq/L (22-28); Base Excess (BEa) -5.4 mEq/L (-2.0 to +3.0); CO2 Tension 47.1 mmHg (35.0-45.0); Carboxyhemoglobin (COHb) 0.5 gm% (0.0-3.0); Hemoglobin (Hb) 16.3 g/dL (14.0-18.0); Potassium - ABG Lab 5.36 mmol/L (3.70-5.30); pH, Arterial 7.28 (7.35-7.45)
[2020-04-10 16:59] LABS: O2 Tension (PaO2), arterial 50.2 mmHg (> 80.0)
[2020-04-10 17:00] LABS: ALV-art Gradient 603.925 mmHg (0-20); Puncture Site RRA
[2020-04-10] MEDS: methylPREDNISolone Sod Succ 40 MG VIAL IVP SCH ×2 (17:43→23:42)
[2020-04-10] MEDS: Cefepime 2 GM in Sodium Chloride 0.9% 100 ML IVPB SCH (17:43)
[2020-04-10] MEDS: Mometasone 200 MCG/Formoterol 5 MCG 120 PUFF INHALER INH SCH (18:42)
[2020-04-10] MEDS: Acetaminophen 325 MG TAB PO PRN (20:10)
--- NOTE | 2020-04-10 20:32 | CON ---
DATE OF CONSULTATION: HISTORY OF PRESENT ILLNESS: A 64-year-old gentleman who has been in the hospital here for 9 days. He got progressively worse today with known history of rosa positive pneumonia. Infectious Disease has been seeing the patient. He has BiPAP at home apparently. He is clearly encephalopathic. He was transferred to the MICU. We are calling Anesthesia to intubate the patient. PAST MEDICAL HISTORY: Sleep apnea, coronary artery disease, stent, previous hypertension. PAST SURGICAL HISTORY: Including shoulder surgery, hip surgery, right hand surgery, both knee surgery. SOCIAL HISTORY: Former cocaine abuse, apparently tobacco abuse. HOME MEDICATIONS: Presumably includes 1. Allopurinol. 2. Trelegy. 3. Norvasc. 4. Amiodarone 400. 5. Coreg 6.25. 6. Eliquis 5. ALLERGIES: PHYSICAL EXAMINATION: VITAL SIGNS: His temperature 99, respirations 32, sats on BiPAP 100% FiO2, 15/7, 80%, blood pressure 106/70. CHEST: Extensive rhonchi and crackles. CARDIAC: Sinus tach. ABDOMEN: Massive. He appeared to be cyanotic. LABORATORY DATA: His pO2 was 39, pCO2 of 35, high-flow 70% FiO2. Sodium is 133, creatinine 2, BUN 47. C-reactive protein 28. His white count 85131. IMPRESSION: Rosa positive pneumonia, respiratory failure, renal failure, morbid obesity, sleep apnea, encephalopathy. PLAN: He is going to be intubated. We will continue vent support, PT, Nutrition. 45 minutes critical care time. Job ID: [id number]
[2020-04-10] MEDS ORDERED: Sodium Chloride 0.9% 500 ML IV SCH (21:45)
[2020-04-10] MEDS: Propofol 1,000 MG/100 ML VIAL IV PRN (23:42)
[2020-04-10] MEDS ORDERED: Lidocaine Patch Removal 1 EACH TOP SCH (23:59)
[2020-04-11] MEDS ORDERED: VANCOMYCIN HCL IVPB SCH (00:02)
[2020-04-11] MEDS ORDERED: SODIUM CHLORIDE 0.9% IVPB SCH (00:02)
--- NOTE | 2020-04-11 00:06 | PDOC.EVN ---
Event Note - Event Note Event Note: called patient has low BP and fever NS bolus was given and BP remains low will start Levo drip add nicoleo possibly needs a central line
[2020-04-11] MEDS ORDERED: Norepinephrine 8 MG/0.9% NS 250 ML IVPB SCH (00:15)
--- NOTE | 2020-04-11 01:13 | CON ---
DATE OF CONSULTATION: CONSULTING PHYSICIAN: Frannie Cervantes MD REQUESTING PHYSICIAN: Zandra Leary MD REASON FOR CONSULTATION: Acute kidney injury. IMPRESSION: 1. Acute kidney injury. This is likely cytokine mediated as well as disseminated COVID/systemic manifestations including possible microvascular coagulopathy. 2. COVID pneumonitis culminating into cardiopulmonary failure. 3. Cardiopulmonary failure. PLAN: 1. Hemodynamic support. 2. Avoid potentially nephrotoxic agents. 3. The patient is not overtly fluid overloaded at this point therefore renal replacement therapy not indicated at this point; however, if this renal function continues to deteriorate at this trajectory, this modality of treatment might become necessary. HISTORY OF PRESENT ILLNESS: History is that of 64-year-old gentleman with a history of coronary artery disease, hypertension, atrial fibrillation, gout, obstructive sleep apnea, and COPD as well as obesity, who was recently admitted because of the worsening respiratory failure in the context of COVID pneumonitis. The patient admitted with a creatinine of about 1.7. This improved with creatinine down to about 1; however, for some reason past 24 hours has weakness, deterioration in patient's clinical condition as well as elevation in creatinine, at this time of dictation, creatinine has gone up to 2.1 and thus in need for renal consultation. At the time of history taking, the patient is already intubated and proned; therefore, could not get any history from this patient. PAST MEDICAL HISTORY: As documented in the body of the history. FAMILY HISTORY: Could not be obtained. SOCIAL HISTORY: As per records showed no alcohol, no tobacco, no illicit drug use. REVIEW OF SYSTEMS: Could not be done given the clinical status of this patient. LABORATORY INVESTIGATION: Significant for D-dimer that gone up to 2.61. Chemistry; creatinine of 2.17, BUN of 49. CBC showed worsening leukocytosis with a white count of 14,000. PHYSICAL EXAMINATION: GENERAL AND VITAL SIGNS: The patient is found to be intubated on prone position with the following vital signs; blood pressure 167/89, afebrile, temperature 99, O2 saturation of 91% to 92% on FiO2 of 100. HEENT: Remarkable for endotracheal tube in place. CARDIOVASCULAR SYSTEM: First and second heart sounds were heard. RESPIRATORY SYSTEM: Revealed vented sounds. DIGESTIVE SYSTEM: Revealed obese abdomen. EXTREMITIES: No peripheral edema. SKIN: No new gross rash. LYMPHATICS: No peripheral lymphadenopathy. SUMMARY: A 64-year-old gentleman with cardiopulmonary failure in the context of COVID pneumonitis, now experiencing deterioration in renal function, which might be part of this systemic manifestation of COVID-19. Thank you for this consultation. We will follow with you. Job ID: [id number]
[2020-04-11] MEDS ORDERED: Sodium Chloride 0.9% 1,000 ML IV SCH ×2 (02:00→08:45)
[2020-04-11] MEDS: Cefepime 2 GM in Sodium Chloride 0.9% 100 ML IVPB SCH (02:58)
[2020-04-11] MEDS: methylPREDNISolone Sod Succ 40 MG VIAL IVP SCH ×2 (05:03→10:30)
[2020-04-11 06:59] LABS: Mean Corpuscular HGB CONC 31.5 g/dL (32.0-36.0); Red Blood Cell (RBC) Count 4.55 mill/uL (4.70-6.10); White Blood Cell (WBC) Count 5.3 thou/uL (4.8-10.8)
[2020-04-11 07:26] LABS: Anion Gap 21 mmol/L (10-20); BUN (Urea Nitrogen) 74 mg/dL (8.4-25.7); Calc. Creatinine Clearance 32 mL/min (70-130); Calcium 7.7 mg/dL (7.8-10.44); Carbon Dioxide 17 mmol/L (23-31); Chloride 100 mmol/L (98-107); Estimated GFR-MDRD 11; Glucose 89 mg/dL (80-115); Potassium 6.2 mmol/L (3.5-5.1); Sodium 132 mmol/L (136-145)
[2020-04-11] MEDS: PROVENTIL INHALER 6.7 G (200 INHALATIONS) INH SCH ×2 (07:45→10:48)
[2020-04-11 07:59] LABS: Actual Bicarbonate (HCO3a) 20.8 mEq/L (22-28); Base Excess (BEa) -10.9 mEq/L (-2.0 to +3.0); Calcium, Ionized (arterial) 1.06 mmol/L (1.12-1.30); Carboxyhemoglobin (COHb) 0.7 gm% (0.0-3.0); Hemoglobin (Hb) 15.7 g/dL (14.0-18.0); Potassium - ABG Lab 5.88 mmol/L (3.70-5.30)
[2020-04-11] MEDS: Carvedilol 6.25 MG TAB PO SCH (08:10)
[2020-04-11 08:15] LABS: CO2 Tension 73.2 mmHg (35.0-45.0); pH, Arterial 7.07 (7.35-7.45)
[2020-04-11 08:16] LABS: Puncture Site RRA
[2020-04-11 08:37] LABS: Band 60 % (5-11); Dohle Bodies SLIGHT; Lymphocytes 5 % (21-51); MDiff Complete? YES; Macrocytosis SLIGHT = 6-15 cells (100X) (0-5/hpf); Mean Platelet Volume 9.5 fL (7.4-10.4); Metamyelocyte 9 % (0-0); Monocytes 5 % (0-10); Neutrophil 21 % (42-75); Platelet Count 84 thou/uL (130-400); Platelet Morphology Comment Appears Decreased; Polychromasia SLIGHT = 2-3 cells (100X) (0-2/hpf); RBC Distribution Width 12.8 % (11.5-14.5); Toxic Granulation SLIGHT; Vacuoles SLIGHT
[2020-04-11] MEDS ORDERED: Sodium Bicarbonate 150 MEQ in Dextrose 5% in Water 1,000 ML IV SCH (09:00)
--- NOTE | 2020-04-11 09:03 | PRG ---
DATE OF SERVICE: 04/11/2020 SUBJECTIVE: Bernardo Matthews is a morbidly obese gentleman, who was intubated yesterday with progressive respiratory failure. OBJECTIVE: VITAL SIGNS: His temperature 99, pulse respiratory rate 20, 100% FiO2, PEEP of 13, blood pressure 101/47. His I's and O's have been consistently even. CHEST: Decreased breath sounds. No wheezing. CARDIAC: Normal S1, S2. No gallops. ABDOMEN: Massive. LABORATORY DATA: White count is 5000, H and H 15 and 47. His pO2 was only 45, pCO2 rate of 20, tidal volume 600, PEEP of 13. Creatinine is increased to 5, BUN 74, sodium 132, potassium 6.2. IMPRESSION: 1. Morbidly obese, respiratory failure, rosa positive pneumonia. 2. Increasing renal failure. PLAN: The patient is clearly not weanable. We are going to avoid doing any prone position in this patient because of his morbid obesity and severe respiratory acidosis. Discuss with family as they arrive. His long-term prognosis is grave. We are going to give an amp of D50 and 10 units of insulin for his elevated potassium. He may require dialysis. Input from Nephrology pending. One-half hour of critical care time. Job ID: [id number]
[2020-04-11] MEDS: Amiodarone 200 MG TAB PO SCH (09:09)
[2020-04-11] MEDS: Amlodipine 5 MG TAB PO SCH (09:11)
[2020-04-11] MEDS: Propofol 1,000 MG/100 ML VIAL IV PRN (09:15)
[2020-04-11] MEDS: Apixaban 2.5 MG TAB PO SCH (09:25)
[2020-04-11] MEDS ORDERED: Sodium Bicarb 50 MEQ/50 ML Abboject 8.4% SYRINGE ONE (10:15)
[2020-04-11] MEDS ORDERED: Calcium Chloride 1 GM/10 ML Abboject SYRINGE ONE (10:15)
[2020-04-11] MEDS ORDERED: EPINEPHrine 1 MG/10 ML Abboject SYRINGE ONE (10:15)
[2020-04-11] MEDS ORDERED: Atropine Sulfate 1 mg/10 ml Syringe ONE (10:15)
[2020-04-11] MEDS: Mometasone 100 MCG/PUFF (1 INHALER) INH SCH (10:43)
[2020-04-11] MEDS: Mometasone 200 MCG/Formoterol 5 MCG 120 PUFF INHALER INH SCH (10:44)
[2020-04-11] MEDS ORDERED: Dextrose 50% Abboject 50 ML SYRINGE SLOW IVP SCH (11:30)
[2020-04-11] MEDS ORDERED: HumaLOG 300 UNITS/3 ML VIAL IVP SCH (11:30)
[2020-04-11] MEDS: Lidocaine 5% Patch TD SCH (12:29)
--- NOTE | 2020-04-11 12:29 | OP ---
DATE OF PROCEDURE: 04/11/2020 PREOPERATIVE DIAGNOSES: COVID pneumonia, respiratory failure, ventilator dependent, morbid obesity, poor IV access, acute renal failure. POSTOPERATIVE DIAGNOSES: COVID pneumonia, respiratory failure, ventilator dependent, morbid obesity, poor IV access, acute renal failure. PROCEDURE PERFORMED: Right femoral vein Trialysis catheter, left femoral vein triple-lumen catheter. ANESTHESIA: Ventilator sedation. The patient on the ventilator and IV sedation. DESCRIPTION OF PROCEDURE: At the patient's bedside in ICU, both groins clipped of hair, prepared with ChloraPrep and draped in routine fashion. Both femoral veins were cannulated with trocar catheters, J-wire was threaded, trocar catheters removed. Seldinger technique used to place a triple-lumen catheter on the left, a Trialysis catheter on the right, securing both with 3-0 nylon suture. Sterile dressing applied. All ports aspirated blood, flushed with heparinized saline solution. The patient tolerated the procedure well. Job ID: [id number]
[2020-04-11] MEDS ORDERED: Vancomycin 1 GM in Premix Bag 1 BAG IVPB SCH ×3 (12:45→23:00)
[2020-04-11] MEDS ORDERED: Vancomycin HCl 1.5 GM in Sodium Chloride 0.9% 250 ML 300 ML IVPB SCH (12:45)
[2020-04-11] MEDS ORDERED: Vancomycin HCl 1.25 GM in Sodium Chloride 0.9% 250 ML 250 ML IVPB SCH (12:45)
[2020-04-11] MEDS ORDERED: Vancomycin HCl 750 MG in Sodium Chloride 0.9% 250 ML 250 ML IVPB SCH (12:45)
[2020-04-11] MEDS ORDERED: HOLD VANCOMYCIN FOR LEVEL >20 FS SCH (12:45)
--- NOTE | 2020-04-11 14:09 | PDOC.HOSPP ---
- Subjective Encounter Date: 04/11/20 Encounter Time: 12:20 Subjective: is on vent, not oriented, on mild sedation - Objective Vital Signs & Weight: Vital Signs (12 hours) Temp Pulse Resp BP Pulse Ox 04/11/20 12:00 24 H 04/11/20 10:00 24 H 04/11/20 09:11 82 97/67 04/11/20 08:10 91/47 L 04/11/20 08:00 99.2 F 20 83 L 04/11/20 06:00 20 04/11/20 05:00 99.0 F 04/11/20 04:00 20 Weight Weight 342 lb 9.573 oz Most Recent Monitor Data Heart Rate from ECG 120 NIBP 89/56 NIBP BP-Mean 67 Respiration from ECG 10 SpO2 79 I&O: 04/10/20 04/11/20 04/12/20 06:59 06:59 06:59 Intake Total 2630 1942.8 100 Output Total 2450 274 20 Balance 180 1668.8 80 Result Diagrams: 04/11/20 06:11 04/11/20 06:11 Hospitalist ROS - Medication Medications: Active Medications Generic Name Dose Route Start Last Admin Trade Name Freq PRN Reason Stop Dose Admin Acetaminophen 650 mg 04/01/20 12:51 04/10/20 20:10 Acetaminophen 325 Mg Tab PO 650 mg Q4H PRN Administration Headache/Fever/Mild Pain (1-3) Albuterol/Ipratropium 3 ml 04/10/20 19:00 04/11/20 07:46 Ipratropium/Albuterol Sulfate 3 Ml Neb NEB 3 ml [id number] EMANI Administration Amiodarone HCl 400 mg 04/02/20 09:00 04/11/20 09:09 Amiodarone 200 Mg Tab PO 400 mg BID EMANI Administration Amlodipine Besylate 5 mg 04/07/20 09:00 04/11/20 09:11 Amlodipine 5 Mg Tab PO Not Given DAILY EMANI Apixaban 2.5 mg 04/10/20 09:00 04/11/20 09:25 Apixaban 2.5 Mg Tab PO 2.5 mg BID EMANI Administration Carvedilol 6.25 mg 04/02/20 08:00 04/11/20 08:10 Carvedilol 6.25 Mg Tab PO Not Given BID-WM EMANI Fentanyl Citrate 2,000 mcg/ 100 mls @ 0 mls/hr 04/10/20 16:15 04/10/20 18:18 Sodium Chloride IV 05/10/20 16:15 100 mls INF EMANI Administration Protocol Per Protocol Norepinephrine Bitartrate 250 mls @ 0 mls/hr 04/11/20 00:15 04/11/20 00:16 Levophed IVPB 250 mls INF EMANI Administration Protocol Titrate Ascorbic Acid 1,500 mg/ Sodium 53 mls @ 100 mls/hr 04/11/20 12:00 04/11/20 10:27 Chloride IVPB 04/15/20 06:32 53 mls Q6HR EMANI Administration Sodium Bicarbonate 150 meq/ 1,150 mls @ 75 mls/hr 04/11/20 09:00 04/11/20 10:25 Dextrose/Water IV 1,150 mls .[id number] EMANI Administration Lidocaine 2 patch 04/10/20 12:00 04/11/20 12:29 Lidocaine 5% Patch TD Not Given 1200 EMANI Melatonin 3 mg 04/08/20 22:47 04/10/20 00:17 Melatonin 3 Mg Tab PO 3 mg HS PRN Administration Insomnia Methylprednisolone Sodium Succinate 40 mg 04/10/20 18:00 04/11/20 10:30 Methylprednisolone Sod Succ 40 Mg Vial IVP 40 mg Q6HR EMANI Administration Miscellaneous Medication 2 each 04/10/20 23:59 04/10/20 23:34 Lidocaine Patch Removal 1 Each TOP Not Given 2359 EMANI Mometasone Furoate/Formoterol Fumar 2 puff 04/10/20 18:30 04/11/20 10:44 Mometasone 200 Mcg/Formoterol 5 Mcg 120 Puff Inhaler INH 2 puff BID-RT EMANI Administration Propofol 1,000 mg 04/10/20 16:15 04/11/20 09:15 Propofol 1,000 Mg/100 Ml Vial IV 05/10/20 16:15 1,000 mg INF PRN Administration TO ACHIEVE GOAL RASS Protocol Sodium Chloride 10 ml 04/09/20 21:00 04/11/20 10:25 Flush - Normal Saline 10 Ml Syringe IVF 10 ml Q12HR EMANI Administration - Exam General Appearance: ill appearing Eye: PERRL, anicteric sclera ENT: no oropharyngeal lesions, dry oral mucosa Neck: supple, no JVD Heart: RRR, no murmur Respiratory: no wheezes, rales, rhonchi Gastrointestinal: soft, non-tender, non-distended, normal bowel sounds Extremities: no cyanosis, no edema Neurological: cranial nerve grossly intact, no focal deficits Hosp A/P (1) Acute respiratory failure with hypoxemia Code(s): J96.01 - ACUTE RESPIRATORY FAILURE WITH HYPOXIA Status: Acute (2) Pneumonia due to COVID-19 virus Code(s): U07.1 - COVID-19; J12.89 - OTHER VIRAL PNEUMONIA Status: Acute (3) Atrial fibrillation Code(s): I48.91 - UNSPECIFIED ATRIAL FIBRILLATION Status: Chronic Qualifiers: Atrial fibrillation type: paroxysmal Qualified Code(s): I48.0 - Paroxysmal atrial fibrillation (4) CKD (chronic kidney disease) stage 3, GFR 30-59 ml/min Code(s): N18.3 - CHRONIC KIDNEY DISEASE, STAGE 3 (MODERATE) * DO NOT USE * Status: Chronic (5) Coronary artery disease Code(s): I25.10 - ATHSCL HEART DISEASE OF [place] CORONARY ARTERY W/O ANG PCTRS Status: Chronic Qualifiers: Coronary Disease-Associated Artery/Lesion type: [place] artery [place] vs. transplanted heart: [place] heart Associated angina: without angina Qualified Code(s): I25.10 - Atherosclerotic heart disease of [place] coronary artery without angina pectoris (6) Gout Code(s): M10.9 - GOUT, UNSPECIFIED Status: Chronic Qualifiers: Gout site: unspecified site (7) Hypertension Code(s): I10 - ESSENTIAL (PRIMARY) HYPERTENSION Status: Chronic Qualifiers: Hypertension type: essential hypertension Qualified Code(s): I10 - Essential (primary) hypertension (8) Obesity Code(s): E66.9 - OBESITY, UNSPECIFIED Status: Chronic Qualifiers: Obesity classification: adult class 3 (BMI >= 40) Body mass index: BMI 45. 0-49.9 - Plan has severe resp and met acidosis, will get dialysis today, has sudden elevation of renal function with hyperkalemia. has severe covid 19 pna d/w is on levophed, steroids, eliquis, norvasc, coreg, and amiodarone high dose bid, cefepime, bicarb drip. has morbid obesity with bmi of 45 poor prognosis, d/w palliative care.
[2020-04-11 14:17] VITALS: BMI 46.4
[2020-04-11 15:33] VITALS: BP 74/47
[2020-04-11] MEDS ORDERED: Vasopressin 20 UNIT, Admixture Fee 1 EACH in Sodium Chloride 0.9% 50 ML IV SCH (16:15)
--- NOTE | 2020-04-11 16:39 | PRG ---
DATE OF SERVICE: 04/11/2020 SUBJECTIVE: Bernardo Matthews at about 3:45 to 3:50 slightly had an asystolic episode. No blood pressure. No pulse. CPR was initiated. Over 20 minutes, he received about 4 amps of epinephrine, 2 amps of bicarb, 1 amp of calcium, and atropine, ongoing CPR. Finally, we were able to get a pulse. Femoral pulses are palpable. Blood pressure was still in the 70s. He was started on vasopressin drip. He is already on Levophed. OBJECTIVE: VITAL SIGNS: His oxygenation is still very poor. He is on bilevel 100% and low PEEP of 15. Saturations are barely in the 80s. CHEST: Extensive rhonchi. CARDIAC: Normal S1 and S2. ABDOMEN: Massive. ASSESSMENT: 1. Multiorgan failure, sepsis syndrome, Staphylococcus. 2. Superimposed coronavirus pneumonia. 3. Renal failure. 4. Asystolic episode, prolonged cardiopulmonary resuscitation. PLAN: I will continue vasopressin and Levophed. I spoke to his son at length from [place] that the patient unfortunately is not able to oxygenate in spite of maximum supportive care. More than likely, he is going to have another episode of asystolic event. At that time, we would not be doing any further chest compression and CPR. Comfort care thereafter. He understands. One-half hour of critical care time. Job ID: [id number]
--- NOTE | 2020-04-11 16:52 | PRG ---
DATE OF SERVICE: 04/11/2020 We just proceeded to stabilize the patient when he had another episode of asystolic event. Flat line, low blood pressure, no pulse. As per the previous discussions, no further CPR was to be done. He was pronounced at 1623 hours (4:23 p.m.). Son is being contacted about his father's demise. No autopsy at this time. We will notify hospitalist, primary care physician. Job ID: [id number]
--- NOTE | 2020-04-11 18:48 | PRG ---
DATE OF SERVICE: 04/11/2020 SUBJECTIVE: The patient was seen and examined, not in a very good state. Noted with the following vital signs. OBJECTIVE: VITAL SIGNS: Blood pressure hovers in the 80s, heart rate of 60, O2 sat of 79% to 85%. HEENT: Remarkable for endotracheal tube in place. CARDIOVASCULAR SYSTEM: First and second sounds were heard. RESPIRATORY SYSTEM: Revealed vented sounds. EXTREMITIES: No significant edema. IMPRESSION: 1. Cardiopulmonary failure in the context of to COVID pneumonitis. 2. Acute kidney injury. 3. Hyperkalemia in the context of acute kidney injury. PLAN: 1. Emergency dialysis; therefore, we will secure dialysis access today to initiate emergency dialysis. 2. We will continue with daily dialysis for now until patient's respiratory status improved and electrolytes. 3. Avoid potentially nephrotoxic agents. 4. Renally dose all medications. 5. Further management to be dependent on the clinical course. The prognosis is poor. Job ID: [id number]
[2020-04-11 18:51] VITALS: TEMP 100.3
[2020-04-12] MEDS ORDERED: Cefepime 1 GM in Sodium Chloride 0.9% 100 ML IVPB SCH (04:00)
--- NOTE | 2020-04-12 12:39 | DIS ---
DATE OF ADMISSION: 04/01/2020 DATE OF DISCHARGE: 04/11/2020 DATE OF : 04/11/2020. TIME OF : 1623 hours. PRIMARY CAUSE OF : COVID-19 pneumonia with acute respiratory failure with hypoxia from last 10 days, acute renal failure from last 2 days, sepsis with MRSA bacteremia from 2 days. SECONDARY CAUSE OF : Morbid obesity with BMI of 46, chronic atrial fibrillation, coronary artery disease, chronic kidney disease stage 3. BRIEF COURSE DURING HOSPITALIZATION: The patient initially got admitted on the April 01 with complaints of shortness of breath. The patient had known history of being positive for COVID on March 21. He has had worsening symptoms of shortness of breath, chills, fevers, and weakness. He became very weak and fell. Finally, the patient managed to come to the hospital. His saturations were in the 80s on arrival and was placed on supplemental oxygen, later was upgraded to high-flow oxygen. He has had consultation with Dr. Pickett for Infectious Disease. The patient was on almost the 12th day of his illness on arrival and was not eligible for remdesivir when he came. He was on steroids and was on Eliquis. In view of morbid obesity and multiple risk factors, the patient was at high risk for further worsening. On 04/10/2020, the patient's saturations further dropped to 60s on high-flow oxygen despite increasing his FiO2 and was finally intubated. He also had acute kidney injury on top of his chronic kidney disease stage 3, which got worse overnight. His creatinine was 2.1 on the 3rd and araceli up to 5.2 on the 4th. Blood cultures drawn on the April 10 was growing MRSA and the final sensitivity pattern was pending at the time of this dictation. He was on cefepime and vancomycin in addition to steroids. He has had consultation with Dr. Kathleen for Nephrology. The patient went into severe sepsis with maxing out on Levophed and vasopressin. He also had preparations for dialysis done. Finally, he has had code blue and with initial CPR done, went into asystole. 20 minutes of CPR was done, which was successful, but then the patient had another episode of asystole. Dr. Cameron spoke to the patient's son and he did not want another CPR done if he were to go into asystole, which did happen at 1623 hours and he was pronounced . Body will be released to family per hospital protocol. Job ID: [id number]
--- NOTE | 2020-04-13 04:14 | PQF ---
Dear : Zandra Leary Date 04/13/20 Please exercise your independent, professional judgment in responding to the clarification form. Clinical indicators are provided on the bottom of this form for your review Please check appropriate box(es): [ x ] Sepsis due to COVID Pneumonia [ x ] Severe sepsis with associated acute organ dysfunction and mrsa bacteremia [ ] Localized infection without sepsis [ ] Other diagnosis please specify [ ] Unable to determine In addition, please specify: Present on Admission (POA): [ x ] Yes [ ] No [ ] Unable to determine Physician Signature: Date/Time: For continuity of documentation, please document condition throughout progress notes and discharge summary. Thank You. To be completed by CDI/Coding staff for physician review: Present Clinical Indicators - Signs / Symptoms / Labs Results and Location in Medical Record [ x ] VS: BP: 115/19, P: 64, RR: 20, T: 99.4 ED Provider pg.2 [ x ] Noted worsening dypnea, chills, fever and weakness H and P pg.1 [ x ] Acute respiratory failure 2/2 COVID pneumonia H and P pg.4 [ x ] Thrombocytopenia, unclear etiology-- possibly COVID/Sepsis H and P pg.6 [ x ] Blood culture: Methicillin resistant S. Aureus Microbiology 04/10 [ x ] Tachycardic, tachypneic, quit obtunded PN 04/10/20 Dr. Pickett [ x ] Multiorgan failure, Sepsis syndrome, staphylococcus PN 04/11 pg.1 [ x ] CBC showed worsening leukocytosis with a BWC of 14,000 Consult pg. 2 [ x ] WBC: 5.0, 6.7, 6.7, 15.8H, 14.0H, 13.3H, 53 Laboratory [ x ] AGA HP 04/01 [ x ] encephalopathy Consult 04/10 [ x ] Acidosis PN 04/11 [ x ] Chest Xray: Abnormal peripheral opacities throughout the lungs Chest Xray 04/01 Present Risk Factors Results and Location in Medical Record [ x ] COVID pneumonia ED Provider pg.3 [ x ] 64 years old H and P pg.1 [ x ] CAD H and P pg.1 [ x ] HTN H and P pg.1 [ x ] CKD3 H and P pg.1 [ x ] Obesity PN 04/02 [ x ] Former Smoker ED Provider pg.1 Present Treatments Results and Location in Medical Record [ x ] IV Fluids MAR [ x ] 4 amps EpinephrineIV MAR [ x ] Infectious Consult Dr. Pickett 04/03 [ x ] Chest X ray 04/01 [ x ] Pulmonary Consult Pulmonary Consult 04/10 Dr. Cameron [ x ] Rocephin 2gm IV MAR [ x ] Dexamethasone 10mg IV MAR [ x ] Azithromycin 500mg IV MAR [ x ] Blood culture Microbiology [ x ] WBC monitroing Laboratory [ x ] Mechanical ventilator PN 04/11 CDS/Running Rigger Signature: Eduardo Leiva Phone #: [phone] Date 04/13/2020 This is a permanent part of the Medical Record [id number]
--- NOTE | 2020-04-14 15:47 | EKG ---
Test Reason : Blood Pressure : / mmHG Vent. Rate : 064 BPM Atrial Rate : 064 BPM P-R Int : 182 ms QRS Dur : 082 ms QT Int : 418 ms P-R-T Axes : 037 -69 -09 degrees QTc Int : 431 ms Normal sinus rhythm Left axis deviation Low voltage QRS Cannot rule out Anteroseptal infarct , age undetermined Abnormal ECG Confirmed by JOESPH SIDDIQI, LIBBY ([id number]), sports editor ALIZE GRANADO ([id number]) on 04/14/2020 3:47:16 PM Referred By: Confirmed By:LIBBY PINK MD
== END 2020-04-11 17:30 | disposition expired | DRG 871 ==
LOC: ERS 10:46 → T4-B 12:02 → IMCU/EMU 04-10 15:57 → CCU 04-10 16:24
PROVIDERS: ADMIT Student in an Organized Health Care Education/Training Program; ATTEND Internal Medicine
PROC: 8E0ZXY6 Isolation (ICD-10-PCS; principal; 2020-04-01)
PROC: 5A1935Z Respiratory Ventilation, Less than 24 Consecutive Hours (ICD-10-PCS; 2020-04-10)
PROC: 0BH17EZ Insertion of Endotracheal Airway into Trachea, Via Natural or Artificial Opening (ICD-10-PCS; 2020-04-10)
PROC: 06HY33Z Insertion of Infusion Device into Lower Vein, Percutaneous Approach (ICD-10-PCS; 2020-04-11)
PROC: 3E033XZ Introduction of Vasopressor into Peripheral Vein, Percutaneous Approach (ICD-10-PCS; 2020-04-11)
DX: A41.89 Other specified sepsis (principal); U07.1 COVID-19; J96.01 Acute respiratory failure with hypoxia; J12.89 Other viral pneumonia; I21.A1 Myocardial infarction type 2; N17.9 Acute kidney failure, unspecified; M62.82 Rhabdomyolysis; Z68.42 Body mass index [BMI] 45.0-49.9, adult; G93.40 Encephalopathy, unspecified; E87.2 Acidosis; A41.02 Sepsis due to Methicillin resistant Staphylococcus aureus; R65.20 Severe sepsis without septic shock; G47.33 Obstructive sleep apnea (adult) (pediatric); M06.9 Rheumatoid arthritis, unspecified; I25.10 Atherosclerotic heart disease of native coronary artery without angina pectoris; I46.9 Cardiac arrest, cause unspecified; D69.6 Thrombocytopenia, unspecified; Z87.891 Personal history of nicotine dependence; I12.9 Hypertensive chronic kidney disease with stage 1 through stage 4 chronic kidney disease, or unspecified chronic kidney disease; N18.30 Chronic kidney disease, stage 3 unspecified; M10.9 Gout, unspecified; I25.5 Ischemic cardiomyopathy; E66.01 Morbid (severe) obesity due to excess calories; I48.0 Paroxysmal atrial fibrillation; Z96.641 Presence of right artificial hip joint; Z91.013 Allergy to seafood; Z79.01 Long term (current) use of anticoagulants; Z79.899 Other long term (current) drug therapy; Z95.0 Presence of cardiac pacemaker; Z99.89 Dependence on other enabling machines and devices; Z88.8 Allergy status to other drugs, medicaments and biological substances; E87.5 Hyperkalemia
CPT/HCPCS: 36415; 70450; 71045; 80048; 80053; 81001; 82550; 82553; 82728; 82805; 83690; 83735; 83880; 84100; 84484; 85025; 85379; 85610; 85730; 86140; 87040; 87077; 87149; 87186; 93005; 94002; 94003; 94640; 96365; 96368; 96375; J0171; J0456; J0461; J0692; J0696; J1100; J1642; J2270; J2704; J2920; J3010; J3370; J3475; J3490; J7030; J7070; J7620